=== PATIENT | female | born 1990 | race Caucasian/White ===

== ENCOUNTER → 2023-02-22 | Outpatient (CLI) | payer BC, SELFPAY ==
[2023-02-28 11:18] LABS: HPV APTIMA, High Risk Negative (Negative)
== END | disposition home or self-care (01) ==
LOC: LAB 11:53 → LABSPEC 11:53
PROVIDERS: Referring Provider Nurse Practitioner Women's Health; Visit Provider Nurse Practitioner Women's Health
DX: Z01.419 Encounter for gynecological examination (general) (routine) without abnormal findings (principal)
CPT/HCPCS: 87624; 88175; G0145

== ENCOUNTER → 2023-03-29 | Outpatient (CLI) | payer BC, SELFPAY ==
[2023-03-29 11:07] LABS: Follicle Stimulating Hormone 3.9 mIU/mL; Prolactin 8.9 ng/mL; T4 Free Direct 0.81 ng/dL (0.76-1.46); Thyroid Stim Hormone (TSH) 0.81 uIU/mL (0.358-3.74)
== END | disposition home or self-care (01) ==
LOC: LAB 10:09
PROVIDERS: Referring Provider Nurse Practitioner Women's Health; Visit Provider Nurse Practitioner Women's Health
DX: N91.2 Amenorrhea, unspecified (principal)
CPT/HCPCS: 36415; 83001; 84146; 84439; 84443

== ENCOUNTER → 2023-04-05 | Outpatient (CLI) | payer BC, SELFPAY ==
--- NOTE | 2023-04-05 12:22 | US_ITS ---
HISTORY: amenorrhea. TECHNIQUE: Transabdominal and transvaginal pelvic ultrasound was performed with agee scale and color Doppler evaluation. 88 images. COMPARISON: None. FINDINGS: UTERUS: 7.8 x 3.9 x 5.3 cm. Anteverted. ENDOMETRIAL THICKNESS: 3 mm. RIGHT OVARY: 2.1 x 4 x 2.5 cm for a volume of 11 cc. Multiple small follicles noted. No adnexal masses. LEFT OVARY: 1.5 x 4 x 3 cm for a volume of 9 cc. No adnexal masses. FREE FLUID: None. URINARY BLADDER: Distended at 815 cc. US/Pelvic (Non ) IMPRESSION: Unremarkable pelvic ultrasound. Electronically Signed: Heena Lilly MD at 12:14 EDT ,
[2023-04-05 13:57] LABS: Estradiol 37.1 pg/mL; Luteinizing Hormone 12.1 mIU/mL
[2023-04-05 13:57] LABS: Progesterone Level 0.72 ng/mL (See Comment)
[2023-04-11 14:10] LABS: Anti-Cardiolipin Ab, IgA, Qn < 9 APL U/mL (0-11); Anti-Cardiolipin Ab, IgG, Qn < 9 GPL U/mL (0-14); Anti-Cardiolipin Ab, IgM, Qn < 9 MPL U/mL (0-12); Anti-Mullerian Hormone,Serum 8.24 ng/mL (.); Beta-2-Glycoprotein I IgA <9 (0-25); Beta-2-Glycoprotein I IgG <9 (0-20); Beta-2-Glycoprotein I IgM <9 (0-32); Dilute Prothrombin Time (dPT) 37.1 sec (0.0-47.6); Dilute Russell Viper Venom 33.7 sec (0.0-47.0); Interpretation Comment: (.); PTT-LA 38.6 sec (0.0-43.5); Thrombin Time 19.4 sec (0.0-23.0)
== END | disposition home or self-care (01) ==
PROVIDERS: Referring Provider Nurse Practitioner Women's Health; Visit Provider Nurse Practitioner Women's Health
DX: N91.1 Secondary amenorrhea (principal); N96 Recurrent pregnancy loss; Z31.9 Encounter for procreative management, unspecified
CPT/HCPCS: 36415; 76830; 76856; 82670; 83001; 83002; 83516; 84144; 86146; 86147

== ENCOUNTER → 2023-06-12 | Outpatient (CLI) | payer BC, SELFPAY ==
[2023-06-12 15:44] LABS: Progesterone Level 8.81 ng/mL (See Comment)
[2023-06-12 15:54] LABS: hCG Titer Quant., Serum 118 mIU/mL (1-3)
== END | disposition home or self-care (01) ==
LOC: LAB 13:58
PROVIDERS: Referring Provider Nurse Practitioner Women's Health; Visit Provider Nurse Practitioner Women's Health
DX: N91.2 Amenorrhea, unspecified (principal)
CPT/HCPCS: 36415; 84144; 84702

== ENCOUNTER → 2023-06-14 | Outpatient (CLI) | payer BC, SELFPAY ==
[2023-06-14 11:23] LABS: hCG Titer Quant., Serum 55 mIU/mL (1-3)
== END | disposition home or self-care (01) ==
LOC: LAB 10:40
PROVIDERS: Referring Provider Nurse Practitioner Women's Health; Visit Provider Nurse Practitioner Women's Health
DX: N91.2 Amenorrhea, unspecified (principal)
CPT/HCPCS: 36415; 84702

== ENCOUNTER → 2023-06-23 | Outpatient (CLI) | payer BC, SELFPAY ==
[2023-06-23 13:14] LABS: hCG Titer Quant., Serum < 1 mIU/mL (1-3)
== END | disposition home or self-care (01) ==
LOC: LAB 11:37
PROVIDERS: Referring Provider Nurse Practitioner Women's Health; Visit Provider Nurse Practitioner Women's Health
DX: O20.0 Threatened abortion (principal); Z3A.00 Weeks of gestation of pregnancy not specified
CPT/HCPCS: 36415; 84702

== ENCOUNTER → 2023-07-25 | Outpatient (CLI) | payer BC, SELFPAY ==
[2023-07-25 17:07] LABS: hCG Titer Quant., Serum 558 mIU/mL (1-3)
== END | disposition home or self-care (01) ==
LOC: LAB 15:18
PROVIDERS: Referring Provider Nurse Practitioner Women's Health; Visit Provider Nurse Practitioner Women's Health
DX: N91.2 Amenorrhea, unspecified (principal)
CPT/HCPCS: 36415; 84702

== ENCOUNTER → 2023-07-27 | Outpatient (CLI) | payer BC, SELFPAY ==
[2023-07-27 11:08] LABS: hCG Titer Quant., Serum 1338 mIU/mL (1-3)
== END | disposition home or self-care (01) ==
PROVIDERS: Referring Provider Registered Nurse; Visit Provider Registered Nurse
DX: N91.2 Amenorrhea, unspecified (principal)
CPT/HCPCS: 36415; 84702

== ENCOUNTER → 2023-08-04 | Outpatient (CLI) | payer BC, SELFPAY ==
--- NOTE | 2023-08-04 11:26 | US_ITS ---
STUDY: FIRST TRIMESTER OBSTETRICAL ULTRASOUND REASON FOR EXAM: Female, 32 years old viability LMP: June 17, 2023. TECHNIQUE: Transvaginal TECHNICAL QUALITY: Adequate. PRIOR ULTRASOUND: Comparison is made with prior pelvic sonogram dated April 05, 2023. FINDINGS: There is visualization of a single gestational sac in a normal intrauterine position. The mean sac diameter (MSD) measures 15.1 mm, indicating an estimated gestational age (EGA) of 6 weeks, 2 days. The gestational sac shape is within normal limits. There is a visualized yolk sac. The yolk sac measures 3.2 mm. The placenta is non-visualized. There is no demonstrated embryo ( pole). The estimated gestation age (EGA) by LMP is 6 weeks, 6 days. The estimated date of delivery (KAELA) by LMP is March 23, 2024. The estimated gestation age (EGA) by US is 6 weeks, 2 days. The estimated date of delivery (KAELA) by US is March 27, 2024. The uterus measures 9.2 cm x 7.4 cm x 4.6 cm. Findings suggestive of a bicornuate uterus. There is no demonstrated uterine fibroid. The cervix is closed. The right ovary measures 3.8 cm x 4.4 cm x 2.3 cm. Dominant follicle in the right ovary measuring 9 mm x 10 mm x 10 mm. There is no visualized right adnexal mass or complex lesion. The left ovary measures 3 cm x 3.8 cm x 1.6 cm. There is no left ovarian cyst. There is no visualized left adnexal mass or complex lesion. There is no fluid in the cul de sac. US/Transvaginal w/Preg US IMPRESSION: Intrauterine gestational sac with a mean gestational age of 6 weeks and 2 days. No pole is seen at this time. Electronically Signed: Edin De Leon MD at 12:48 EDT ,
[2023-08-04 14:07] LABS: hCG Titer Quant., Serum 16765 mIU/mL (1-3)
== END | disposition home or self-care (01) ==
PROVIDERS: Referring Provider Registered Nurse; Visit Provider Registered Nurse
DX: Z87.59 Personal history of other complications of pregnancy, childbirth and the puerperium (principal)
CPT/HCPCS: 36415; 76817; 84702

== ENCOUNTER → 2023-08-07 | Outpatient (CLI) | payer BC, SELFPAY ==
[2023-08-07 08:24] LABS: hCG Titer Quant., Serum 26669 mIU/mL (1-3)
== END | disposition home or self-care (01) ==
PROVIDERS: Referring Provider Registered Nurse; Visit Provider Registered Nurse
DX: Z87.59 Personal history of other complications of pregnancy, childbirth and the puerperium (principal)
CPT/HCPCS: 36415; 84702

== ENCOUNTER → 2023-08-24 | Outpatient (CLI) | payer BC, SELFPAY ==
[2023-08-24 16:09] LABS: Absolute Lymphocyte Count 1.64 X10^3/uL (0.83-4.51); Absolute Neutrophil Count 6.2 X10^3/uL (2.0-7.7); Basophil# 0.03 X10^3/uL; Basophil% 0.3 % (0-1); Eosinophil# 0.04 X10^3/uL; Eosinophils% 0.5 % (0-5); Hematocrit 38.1 % (37-47); Hemoglobin 12.4 g/dL (12.0-15.0); Lymphocyte # 1.64 X10^3/ul (0.83-4.51); Lymphocyte % 19.1 % (19-41); Mean Corp Hgb Conc 32.5 g/dL (32-36); Mean Corpuscular Hgb 29.5 pg (27.0-32.0); Mean Corpuscular Volume 90.5 fL (81-99); Mean Platelet Vol. 10.7 fl (6.2-12.0); Monocyte# 0.64 X10^3/uL; Monocyte% 7.5 % (0-10); NRBC Flagged by Analyzer 0 % (0-5); Neutrophil % 72.1 % (47-70); Platelet Count 277 K/mm3 (150-450); RBC Distribution Width SD 42.7 fl (35.1-43.9); Red Blood Count 4.21 M/mm3 (4.2-5.4); White Blood Count 8.6 K/mm3 (4.4-11.0)
[2023-08-24 17:24] LABS: HIV - WCH Non-Reactive (Nonreactive); Hepatitis B Surface Antigen Non-Reactive (Nonreactive); Hepatitis C Antibody Non-Reactive (Nonreactive); Rubella IgG Reactive (Nonreactive); Syphilis Antibodies Non-reactive
[2023-08-29 00:06] LABS: Chlamydia By Nucleic Acid AMP Negative (Negative); Gonococcus By Nucleic Acid AMP Negative (Negative)
== END | disposition home or self-care (01) ==
PROVIDERS: PCP Family Medicine; Referring Provider Obstetrics & Gynecology; Visit Provider Obstetrics & Gynecology
DX: Z34.90 Encounter for supervision of normal pregnancy, unspecified, unspecified trimester (principal)
CPT/HCPCS: 36415; 85025; 86703; 86762; 86780; 86803; 86850; 86900; 86901; 87086; 87340; 87491; 87591

== ENCOUNTER 2023-12-10 10:26 | Emergency (ER) | payer BC, SELFPAY ==
[2023-12-10 10:27] VITALS: BP 103/68; PULSE 103; RESP 16; TEMP 36.6; O2SAT 98; BMI 21.5
--- NOTE | 2023-12-10 10:53 | EDS_ITS ---
HPI History of Present Illness Chief Complaint: Cold Sx Informant: patient Narrative Narrative: 33-year-old female at approximately 24 weeks ( P1) presenting hide concerns for dehydration and fever. Patient states on Monday she developed nasal congestion sore throat cough and chest tightness in addition to fever. She has been using Tylenol regularly for the fever. She states that she feels that she cannot get enough fluids in her and she is constantly thirsty. No vomiting or diarrhea. She spoke with her math interventionist this week and was sent to the emergency for evaluation. Patient denies any sputum production. No rashes. She notes her 4-year-old daughter stayed home from school on with fever and has had some ear discomfort. She states she is otherwise a very healthy individual. She states she has not taken any prescription medications. [facility] Medical History Urinary incontinence Home Medications turmeric 100 mg-paresh 150 mg-olive 50 mg-oreg 150 mg-capryl capsule cap PO 02/22/23 [History Last Taken Unknown] progesterone micronized 200 mg capsule (Prometrium) 200 mg vaginal QHS #30 caps 06/13/23 [Rx Last Taken Unknown] multivitamin no.47-iron fum 27 mg-folate no.1 1 mg-dha 300 mg capsule (PNV-DHA) cap PO 08/23/23 [History Last Taken Unknown] magnesium citrate 100 mg tablet 250 mg PO DAILY 09/22/23 [History Last Taken Unknown] oseltamivir 75 mg capsule (Tamiflu) 75 mg PO BID 5 days #10 caps 12/10/23 [Rx Last Taken Unknown] Allergy/AdvReac Type Severity Reaction Status Date / Time peanut Allergy Mild Upset Verified 12/10/23 10:27 Stomach Family History Grandmother Colon cancer Surgical History Hx of tonsillectomy S/P D&C (status post dilation and curettage) Social History adopted: No household members: spouse and children housing: house number of children: 1 current occupational status: employed current occupation: Physical therapist current occupational exposures/hazards: No pets and animals: No history of recent travel: No sexually active: Yes Smoking Status: Never smoker alcohol intake: never substance use type: does not use diet: gluten free and lactose free well-balanced diet: daily or most days caffeine: No eating out: 1-3 times/week during the past year weight has: remained stable what type of physical activity do you participate in: weight training frequency: 1-2 times per week duration: 15-30 minutes/day silvano/caodaism: Amish seatbelt use: always do you feel safe at home: Yes additional social history: - [employer]- Works in IT ROS ROS ED Constitutional Constitutional ED: Reports chills and fever(s); Denies weight loss Eyes Eyes: Denies change in vision or diplopia ENT ENT ED: Reports rhinorrhea, sore throat and other Details: Nasal congestion ; Denies ear pain Cardiovascular Cardiovascular: Denies chest pain, orthopnea, palpitations or racing heartbeat Respiratory/Chest Respiratory/Chest: Reports cough; Denies dyspnea or orthopnea Gastrointestinal Gastrointestinal: Denies abdominal pain, diarrhea, nausea or vomiting Genitourinary Genitourinary ED: Denies dysuria, hematuria or urinary frequency Musculoskeletal Musculoskeletal: Denies arthralgias or myalgias Integumentary Denies abscess or rash Neurologic Neurologic: Denies headache(s) or weakness Psychiatric Psychiatric: Denies anxiety, depression, suicidal ideation or suicidal thoughts Endocrine Endocrinology: Denies polydipsia, polyphagia or polyuria Allergic/Immunologic Allergic/Immunologic ED: Denies mouth swelling, tongue swelling or urticaria EXAM Physical Exam Const Vital Signs: 12/10/23 10:27 Temperature 97.9 F Temperature Source Oral Pulse Rate 103 H Respiratory Rate 16 Blood Pressure 103/68 Blood Pressure Mean 79 Pulse Ox 98 Oxygen Delivery Method Room Air Positive well nourished and well developed General Appearance ED: well developed HEENT Reports normocephalic, head/scalp atraumatic, TM's clear and moist mucous membranes HEENT Narrative: Nasal congestion. Tympanic Membrane ED: Yes TM's clear Eyes PERRL and EOMs intact bilaterally Neck no lymphadenopathy, supple and no JVD Resp normal respiratory effort and clear to auscultation bilaterally Cardio regular rate, regular rhythm and no murmurs GI normal to inspection, nondistended, normoactive bowel sounds and non-tender Palpation: soft Back/Spine no CVA tenderness and normal ROM Extremity normal to inspection General Extremety ED: Negative for edema General Extremity: Negative for edema Neuro oriented x3 and CN's II-XII intact bilaterally Sensorium / Orientation: alert Motor Exam: strength 5/5 throughout Psych mental status grossly normal Mood & Affect: Negative for depressed or tearful Skin no rashes or lesions noted and no wounds MDM MDM MDM Narrative Medical decision making narrative: Patient received a liter of IV fluids. Urinalysis was obtained. This demonstrated no protein or obvious infection. Ketones were only at 5. RSV influenza and COVID swabs were obtained. She is positive for influenza A. heart tones were obtained and normal. Patient and I spoke at length regarding risk benefits of Tamiflu. She is in the timeframe for it to start. She is going to have a discussion with her regarding taking it. We talked about continuing to encourage oral hydration fever control and monitoring breathing. Return if worsening or concerns History & Record Review Discussion w/independent historian: Patient and Family Lab Data Attestation: I reviewed the patient's lab results. Labs: Laboratory Results - last 24 hr 12/10/23 11:06 Urine Color Yellow Urine Clarity Clear Urine pH 7.0 Ur Specific [place] 1.005 Urine Protein Negative Urine Glucose (UA) Normal Urine Ketones 5 H Urine Occult Blood Negative Urine Nitrite Negative Urine Bilirubin Negative Urine Urobilinogen Normal Ur Leukocyte Esterase Negative Urine RBC 0 SEEN Urine WBC 0 SEEN Ur Squamous Epith Cells 0 SEEN Urine Bacteria 0 SEEN Urine Mucus 0 SEEN Discharge Plan Triage Chief Complaint: Cold Sx ED Provider: J[place] Dx/Rx/DC Orders Clinical Impression: , Influenza A Instructions: Influenza (Flu) and Prescriptions: New oseltamivir [Tamiflu] 75 mg capsule 75 mg PO BID 5 Days Qty: 10 0RF No Action ajluentw-fvyo-cinms-oreg-capry 100 mg-150 mg- 50 mg-150 mg capsule PO PNV-DHA 27 mg iron-1 mg -300 mg capsule PO magnesium citrate 100 mg tablet 250 mg PO DAILY progesterone micronized [Prometrium] 200 mg capsule 200 mg vaginal QHS Qty: 30 6RF Primary Care Provider: Xochitl Ferro Referrals: Xochitl Ferro [Primary Care Provider] - As Needed Disposition Disposition: Home, Self Care Discharge Date/Time: 12/10/23 12:49
[2023-12-10] MEDS: 0.9% Normal Saline (1000mL) 1,000 ML 1000 ML IV (11:04)
[2023-12-10 11:11] LABS: Bacteria 0 SEEN /hpf (None Seen); Mucous, Urine 0 SEEN /hpf (<or=2+); Red Blood Cells-Urine 0 SEEN /hpf (0-5); Squamous Epithelial Cells - UA 0 SEEN /hpf (5-10); White Blood Cells 0 SEEN /hpf (0-5)
[2023-12-10 11:14] LABS: Color, Urine Yellow (Yellow); Glucose, Dipstick Normal (Normal); Ketone-Dipstick 5 mg/dl (Negative); Leukocyte Esterase-Dipstick Negative /ul (Negative); Nitrite-Dipstick Negative (Negative); Occult Blood-Urine Negative /ul (Negative); Protein-Dipstick Negative (Negative); Specific Gravity, Urine 1.005 (1.002-1.030); Urine Bilirubin Dipstick Negative (Negative); Urine Clarity Clear (Clear); Urine Urobilinogen Normal (Normal)
--- OUTSIDE RECORDS SUMMARY | 2023-12-10 12:28 | XMS RPT_ITS | CCD ---
Author Name Unknown Address [address] [place] [address] Organization [facility] Care Team Providers Care Chief Fundraising Officer Name Role Phone Mike Anderson Primary Care Provider MIKE ANDERSON Primary Care Unavail able DAKSHA ESTES Admitting Unavailable LISA MALDONADO Attending Unava ilkaitlyn (GAS), [facility] Consulting Unavailable MIKE ANDERSON [facility] Unavail able DAKSHA ESTES Consulting Unavailable DAKSHA ESTES Admitting Unavailable VAHID KNOTT Attending Unavailab le LISA MALDONADO Referring Unava ilable MIKE ANDERSON [facility] Unavail able TEA PEREZ Admitting Unavailable TEA PEREZ Attending Unavailable Mike [place] DO [facility] Provide r Lisa Maldonado DO Unavailable MIKE ANDERSON [facility] Unavail able LISA MALDONADO Admitting Unava ilable MIKE ANDERSON [facility] Unavail able LISA MALDONADO Referring Unava ilable LISA MALDONADO Admitting Unava ilable LISA MALDONADO Admitting Unava ilable LISA MALDONADO Attending Unava ilable MIKE ANDERSON [facility] Unavail able LISA MALDONADO Referring Unava ilable LISA MALDONADO Admitting Unava ilable MADELYN ZHENG Attending Unavaila ble MIKE ANDERSON Primary Care Unavail able Lisa Maldonado Attending Unavailable UNKNOWN, Dr. SUMMERS Primary Care Unavailable JAYA ROCHA Attending MIKE Martinez Primary Care Unavail able JAYA ROCHA Attending MIKE Martinez Primary Care Unavail able FARRUKH PRIMARY CAREMD Primary Care Unavailable ZOILA VALADEZ Referring Unavailab ZOILA Duncan Attending Unavailab le Allergies Allergy Classification Reported Allergen(s) Allergy Type Date of Onset Reaction(s) Facility (8 sources) peanut allergenic extract; Translations: [PEANUT] Drug Allergy 12-22-2019 GI Intolerance [facility] Medications Current Medications Medication Drug Class(es) Dates Sig (Normalized) Sig (Original) amoxicillin 875 mg / clavulanate 125 mg oral tablet (2 sources) Penicillin-class Antibacterial Start: 01-02-2020 End: 01-09-2020 take 1 tablet by mouth twice daily amoxicillin-clav ulanate (AUGMENTIN) 875-125 mg per tablet Take 1 (one) tablet by mouth 2 (two) times a day for 7 days . 14 tablet 0 01/02/2020 01/09/2020 Active cholecalciferol 0.025 mg oral tablet (3 sources) Vitamin D take 2 tablets by mouth once daily cholecalciferol, vitamin D3, 1,000 unit tablet Take 2,000 Units by mouth daily . 0 Active docusate sodium 50 mg / sennosides, nursing home 8.6 mg oral tablet (4 sources) Start: 12-23-2019 End: 01-23-2020 take 1 tablet by mouth once daily senna-docusate (SENNA-S) 8.6-50 mg Take 1 (one) tablet by mouth daily . 30 tablet 0 12/24/2019 01/23/2020 Active ferrous sulfate 325 mg oral tablet (7 sources) Start: 12-23-2019 End: 01-23-2020 take 1 tablet by mouth once daily at breakfast ferrous sulfate 325 (65 FE) MG tablet Take 1 (one) tablet (325 mg total) by mouth daily with breakfast . 30 tablet 0 12/24/2019 Active vitamin with Ca-Iron-FA 27-1 mg Tab (3 sources) take 1 tablet by mouth once daily vitamin with Ca-Iron-FA 27-1 mg Tab Take 1 tablet by mouth daily . 0 Active Completed/Discontinued Medications Medication Drug Class(es) Dates Sig (Normalized) Sig (Original) acetaminophen 325 mg oral tablet (5 sources) Start: 01-06-2020 End: 01-07-2020 take 1 tablet by mouth every six hours as needed acetaminophen (TYLENOL) tablet 650 mg Problems Active Problems Problem Classification Problem Date Documented Da te Episodic/Chronic Nonmalignant breast conditions (5 sources) Unspecified lump in unspecified breast; Translations: [Solitary cyst of left breast] Onset: 09-01-2022 Episodic Other screening for suspected conditions (not mental disorders or infectious disease) (4 sources) Bacteria present; Translations: [Positive GBS test] Onset: 12-21-2019 12-21-2019 Unclassified (1 source) [place] [facility] Physician Contact Required; Translations: [[place] [facility] Physician Contact Required] Onset: 10-11-2022 Past or Other Problems Problem Classification Problem Date Documented Da te Episodic/Chronic Bacterial infection; unspecified site (1 source) Bacteria present; Translations: [Streptococcus, group B, as the cause of diseases classified elsewhere] Onset: 12-21-2019 12-21-2019 Episodic Hypertension complicating ; childbirth and the puerperium (14 sources) Hypertension AND/OR vomiting complicating childbirth AND/OR puerperium; Translations: [Pre-eclampsia] Onset: 12-21-2019 12-21-2019 Episodic Inflammatory diseases of female pelvic organs (4 sources) Endometritis; Translations: [Inflammatory disease of uterus, unspecified] Onset: 01-01-2020 01-02-2020 Episodic Other and delivery including normal (9 sources) No liquor observed vaginally ; Translations: [ state] Onset: 12-21-2019 12-21-2019 Episodic Residual codes; unclassified (5 sources) Gestation period, 39 weeks; Translations: [39 weeks gestation of ] Onset: 12-21-2019 12-21-2019 Episodic Unclassified (1 source) [place] [facility] Physician Contact Required; Translations: [[place] [facility] Physician Contact Required] Onset: 10-11-2022 Results Test Name Value Interpretation Reference Range Facil ity Vital Signs Date Time Vital Sign Value Performing Clinician Faci lity 01-06-2020 19:00-0500 Body Temperature 98.8 [degF] Generic [facility] 01-06-2020 19:00-0500 BP Diastolic 77 mm[Hg] Generic [facility] 01-06-2020 19:00-0500 BP Systolic 122 mm[Hg] Generic [facility] 01-06-2020 19:00-0500 Pulse (Heart Rate) 85 /min Generic [facility] 01-06-2020 19:00-0500 Pulse Oximetry 98 % Generic [facility] 01-06-2020 19:00-0500 Respiratory Rate 14 /min Generic [facility] 01-02-2020 08:06-0500 Respiratory Rate 14 /min Vernon Savage [facility] 01-02-2020 07:15-0500 Body Temperature 98.49 [degF] Vernon Savage [facility] 01-02-2020 07:15-0500 BP Diastolic 82 mm[Hg] Vernon Savage [facility] 01-02-2020 07:15-0500 BP Systolic 130 mm[Hg] [facility] 01-02-2020 07:15-0500 Pulse (Heart Rate) 78 /min Vernonwill Waldropveronica [facility] 01-02-2020 07:15-0500 Pulse Oximetry 98 % Vernon Savage [facility] 01-01-2020 16:35-0500 BMI (Body Mass Index) 22 kg/m2 Vernon Van [facility] 01-01-2020 16:35-0500 Body weight 67.59 kg [facility] 01-01-2020 16:35-0500 Height 175.3 cm [facility] 12-24-2019 08:06-0500 Body Temperature 98.01 [degF] Daksha Estes [facility] 12-24-2019 08:06-0500 BP Diastolic 84 mm[Hg] Daksha Estes [facility] 12-24-2019 08:06-0500 BP Systolic 135 mm[Hg] Daksha Estes [facility] 12-24-2019 08:06-0500 Pulse (Heart Rate) 71 /min Daksha Estes [facility] 12-24-2019 08:06-0500 Pulse Oximetry 99 % Daksha Estes [facility] 12-24-2019 08:06-0500 Respiratory Rate 16 /min Daksha Estes [facility] 12-21-2019 13:0500 BMI (Body Mass Index) 24.37 kg/m2 Daksha Estes [facility] 12-21-2019 13:0500 Body weight 74.84 kg Daksha Estes [facility] 12-21-2019 13:0500 Height 175.3 cm Daksha Estes [facility] Encounters Encounter Date Encounter Type Care Provider Facility Start: 11-09-2023 End: 11-09-2023 ambulatory [facility] Start: 10-26-2022 End: 10-26-2022 ambulatory [facility] Start: 10-11-2022 End: 10-11-2022 ambulatory [facility] Start: 09-01-2022 ambulatory Lisa Jones ility:[id number] Start: 01-11-2022 ambulatory Facility:[facility] Start: 07-30-2021 End: 07-30-2021 ambulatory LISA MALDONADO [facility] Start: 07-27-2021 Patient encounter status Justyn Ochoa RN [facility] Start: 07-27-2021 End: 07-27-2021 Transcribe Orders Justyn Ochoa RN [facility] Procedures Date Procedure Procedure Detail Performing Clinician Start: 01-06-2020 Complete blood count (hemogram) panel - Blood by Automated count Annabel Shupp Work Phone: Start: 01-06-2020 Complete blood count (hemogram) panel - Blood by Automated count Annabel Shupp Work Phone: Start: 01-02-2020 Complete blood count with white cell differential, automated Deana Cleary Work Phone: Start: 01-02-2020 Complete blood count with white cell differential, manual Deana Cleary Work Phone: Start: 01-01-2020 RAINBOW DRAW Vernon Savage Work Phone: Start: 01-01-2020 Urinalysis Vernon Savage Work Phone: Start: 01-01-2020 URINE APPIAH CONTAINER Vernon Waldropveronica Work Phone: Start: 01-01-2020 Us uterus 14 wk transabdl 11/27 gestat Vernon Waldropveronica Work Phone: Start: 01-01-2020 Choriogonadotropin [Units/volume] in Serum or Plasma Vernon Waldrop[employer]onica Work Phone: Start: 01-01-2020 Complete blood count with white cell differential, automated Vernon Waldropveronica Work Phone: Start: 01-01-2020 Complete blood count with white cell differential, manual Vernon Calvin [employer] Work Phone: Start: 01-01-2020 Comprehensive [employer] 1999 panel - Serum or Plasma Vernon Waldropveronica Work Phone: Start: 12-22-2019 Hemoglobin [Mass/volume] in Blood Daksha Estes Work Phone: Start: 12-21-2019 Blood group typing Daksha Estes Work Phone: Start: 12-21-2019 Blood type and Indirect antibody screen panel - Blood Bailey Aziza [employer] Work Phone: Start: 12-21-2019 Complete blood count (hemogram) panel - Blood by Automated count Bailey [employer] Work Phone: Start: 12-21-2019 Comprehensive [employer] 1999 panel - Serum or Plasma [employer] Aziza [employer] Work Phone: Start: 12-21-2019 Lactate dehydrogenase [Enzymatic activity/volume] in Serum or Plasma by Lactate to pyruvate reaction [facility] Work Phone: Start: 12-21-2019 Protein/Creatinine [Ratio] in Urine [facility] Work Phone: Start: 12-21-2019 Treponema pallidum IgG Ab [Presence] in Serum [employer] Work Phone: Start: 12-21-2019 Urate [Mass/volume] in Serum or Plasma Bailey Arreola Work Phone: Start: 06-20-2019 Hepatitis B surface antigen measurement Historical Provider Start: 06-20-2019 Human immunodeficiency virus test Historical Provider Start: 06-20-2019 Neisseria gonorrhoeae nucleic acid detection Historical Provider Start: 06-20-2019 Rapid plasma reagin test Historical Prov ider Start: 06-20-2019 Rubella IgG measurement Historical Provi adolfo Start: 03-03-2017 Microscopic observation [Identifier] in Cervix by Cyto stain Daksha Estes Plan of Treatment Date Care Activity Detail Author Start: 07-30-2021 End: 07-30-2021 Admission to same day surgery center 07/30/2021 Surgery Lisa Maldonado, DO [address] [place] [address] HYSTEROSCOPY WITH DILATION AND CURETTAGE WITH MYOSURE [facility] Periop Immunizations Immunization Date Immunization Notes Care Provider Fa [facility] 12-22-2019 diphtheria, tetanus toxoids and acellular pertussis vaccine, unspecified formulation Daksha Estes [facility] 12-22-2019 measles, mumps and r ubella virus vaccine Daksha Estes [facility] 12-22-2019 varicella zoster immune globulin And rew Maureen [facility] Payers Date Payer Category Payer Unknown [id number] 2020 Private Health Insurance AEALINA LU OPEN ACCESS MANAGED CHOICE [id number] 2020-Present [phone] [address] [place] [address] [id number] 2020 Private Health Insurance [id number] 2015 Unknown [facility] [employer] CE PLUS [id number] 2015-Present [id number] 2015 Unknown [id number] 2015 Unknown [facility] UMR [employer] CE PLUS [id number] 2015-Present [phone] [address] [address] [place] [address] [id number] 1989 Unknown [id number] 1989 Unknown [id number] 1989 Unknown [id number] 1989 Unknown [id number] 1989 Unknown [id number] 1989 Unknown [id number] 1989 Unknown [id number] 1989 Unknown [id number] 1989 Unknown [id number] .903 1989 Unknown [id number] 1989 Unknown [id number] Social History Date Type Detail Facility Start: 12-21-2019 End: 12-22-2019 Tobacco smoking status NHIS Never smoker [facility] Start: 12-22-2019 End: 01-01-2020 Alcohol intake Ex-drinker (finding) [facility] Start: 12-21-2019 End: 01-01-2020 History SDOH Alcohol Frequency 1 [facility] Start: 1990 Sex Assigned At Not on file [facility] Start: 12-21-2019 Tobacco use and exposure Smokeless t obacco non-user [facility] Evaluation note Note Date & Type Note Facility documented in this encounter [facility] Hospital Course * Vahid Knott MD - 12/24/2019 10:11 AM EST Vaginal Discharge Summary Patient is s/p Spontaneous Vaginal Delivery day 2. course complicatedby elevated blood pressures. Patient is breast feeding. contraception abstinence. Discharge to home in stable condition with plans to follow up with OB provider in 1 weeks. Disposition: Home Discharge condition: Stable Medications upon discharge: Medication List START taking these medications ferrous sulfate 325 (65 FE) MG tablet Take 1 (one) tablet (325 mg total) by mouth daily with breakfast . ibuprofen 800 MG tablet Commonly known as: ADVIL,MOTRIN Take 1 (one) tablet (800 mg total) by mouth every 6 (six) hours as needed for pain . senna-docusate 8.6-50 mg Commonly known as: SENNA-S Take 1 (one) tablet by mouth daily . STOP taking these medications sodium sulfate, magnesium sulfate, potassium sulfate solution Commonly known as: Suprep Bowel Prep Kit Where to Get Your Medications [id number] [facility] [address] [place] [phone] ferrous sulfate 325 (65 FE) MG tablet ibuprofen 800 MG tablet senna-docusate 8.6-50 mg documented in this encounter Discharge Instructions * Attachments The following attachments cannot be sent through Care Everywhere. * Preeclampsia: : General Info (Palauan) * (Palauan) documented in this encounter* Instructions* Beck Byrd DO - 01/02/2020 Endometritis: Care Instructions Your Care Instructions endometritis is an infection of the lining of the uterus after you give . It is treated with antibiotics. It is very important to treat this problem. If you don't, you can get a more serious infection. It could cause problems, such as scars on the pelvic organs. Or it could prevent you from having more children. Follow-up care is a khan part of your treatment and safety. Be sure to make and go to all appointments, and call your doctor if you are having problems. It's also a good idea to know your test resultsand keep a list of the medicines you take. How can you care for yourself at home? Take your antibiotics as directed. Do not stop taking them just because you feel better. You need to take the full course of antibiotics. Rest until you feel better. Take an rfks-zam-atemdap pain medicine, such as acetaminophen (Tylenol) or ibuprofen (Advil, Motrin). Read and follow all instructions on the label. Do not take two or more pain medicines at the same time unless the doctor told you to. Many pain medicines have acetaminophen, which is Tylenol. Too much acetaminophen (Tylenol) can be harmful. If you have belly pain, use a hot water bottle. Or you can use a heating pad set on low. Put a thincloth between the heating pad and your skin. Do not have sex or use tampons until your doctor says it's safe. Use pads instead of tampons. When should you call for help? Call 911 anytime you think you may need emergency care. For example, call if: You passed out (lost consciousness). Call your doctor now or seek immediate medical care if: You have severe vaginal bleeding. You are dizzy or lightheaded, or you feel like you may faint. You have a fever. You have new or worse pain in your belly or pelvis. Watch closely for changes in your health, and be sure to contact your doctor if: Your vaginal bleeding seems to be getting heavier. You have new or worse vaginal discharge. You feel sad, anxious, or hopeless for more than a few days. You do not get better as expected. Where can you learn more? Log into your personal health record on [email or web address] and enter E897 in the Education box to learn more about Endometritis: Care Instructions. Current as of: April 24, 2019 Content Version: 12.3 1534-7712 [employer]. Care instructions adapted under license by your healthcare professional. If you have questions about a medical condition or this instruction, always ask your healthcare professional. [employer] disclaims any warranty or liability for your use of this information. documented in this encounter History of Present Illness * Vahid Knott MD - 12/24/2019 10:10 AM EST Progress Note Assessment/Plan 29 y.o. at 39w4d s/p , PPD# 2: Positive GBS test Assessment & Plan Plan intrapartum PCN. Gestational hypertension, third trimester Assessment & Plan 29 y.o. at 39w3d presents with c/o leakage of fluid, found to have elevated BP -blood pressures mild range, asx -HELLP labs: ??? -cvx: FT/th/hi, cephalic by bedside ultrasound -ATSO Dr. Estes -NPO/IVF -CEFM/toco -Admit labs pending -GBS pos; plan intrapartum PCN -Plan fam/pit - if unable to place fam plan cervidil 39 weeks gestation of Assessment & Plan -established with Dr. Maldonado - records requested - per patient GBS positive -NST reactive on arrival, several variable decels w/ normal bedside DVP 5.91 cm Will discuss with attending. Vahid Knott MD Subjective: No new subjective & objective note has been filed under this hospital service since the last note was generated. Review of Systems The following system(s) were reviewed and negative. Pertinent positive and negative findings are noted in the HPI. [] Const [] Eyes [] ENT [] Resp [] CV [] GI [] [] Neuro [] Musc [] Skin [] Psych [] Endo [] Allergy [] Heme/Lymph Objective BP 135/84 Pulse 71 Temp 98 F (36.7 C) (Oral) Resp 16 Ht 5' 9 (1.753 m) Wt 74.8 kg (165 lb) SpO2 99% Unknown BMI 24.37 kg/m General: Alert, well appearing, in no apparent distress Lungs: Unlabored respirations Abdomen: Soft, appropriately tender, fundus firm below umbilicus Extremities: No redness or tenderness in the calves or thighs Labs: Results from last 7 days Lab Units 12/22/19 1605 12/21/19 1200 HGB g/dL 8.9* 12.0 PLT K/mcL -- 217 AST U/L -- 21 ALT U/L -- 18 LDH U/L -- 196 URIC ACID mg/dL -- 4.8 * Abimbola Kemp DO - 12/23/2019 9:56 AM EST Vaginal Delivery Progress Note Assessment/Plan: Status post Vaginal Delivery: Doing well Feeling constipated. Denies MATOS, change in visino or RUQ pain. Continue current care. Subjective: Day 1: Vaginal Delivery The patient feels well. The patient denies emotional concerns. Pain is well controlled with currentmedications. Urinary output is adequate. The patient is ambulating well. The patient is tolerating a normal diet. Patient reports flatus yes. The baby is well Baby is feeding via Information for the patient's : Vanessa, Baby Karla Joshi [[id number]] Feeding Type: Breast milk Objective: Vital signs in last 24 hours: Temp: [97.4 F (36.3 C)-98.7 F (37.1 C)] 98 F (36.7 C) Heart Rate: [62-115] 71 Resp: [16-18] 16 BP: (103-138)/(62-88) 112/74 General: alert, appears stated age and cooperative Bowel Sounds: active Lochia: appropriate Uterine Fundus: firm Perineum: intact DVT Evaluation: No evidence of DVT seen on physical exam. * Linda Reaves RN - 12/22/2019 1:12 PM EST Journeyman Sheet Metal Worker Dr. Vides called to come evaluate bleeding and clots. * Bailey Arreola DO - 12/22/2019 3:06 AM EST Labor Note Subjective Pt is a 29 y.o. , with IUP @ 39w4d with Estimated Date of Delivery: 1/29/20. Pt tolerating labor well and comfortable with epidural . Objective BP (!) 118/97 Pulse 69 Temp 97.6 F (36.4 C) (Oral) Resp 18 Ht 5' 9 (1.753 m) Wt 74.8 kg (165 lb) SpO2 100% BMI 24.37 kg/m FHT: 140 bpm, moderate variability. Accelerations present 15x15. Decelerations absent [place]: contractions ctx every 3 min OB Examiner - PW: Jaden Pitocin: 10 mu/min Epidural: declines GBS positive Membranes: ruptured spontaneously, clear fluid Assessment and Plan 29 y.o. at 39w4d 1. Preeclampsia without severe features 2. SROM - making cervical change, continue pitocin - BP currently stable, asx; continue to monitor for severe features requiring MgSO4 - declining epidural at this time; continue to make available if patient desires - continue routine intrapartum care documented in this encounter* Beck Byrd DO - 01/02/2020 7:54 AM EST Gynecology Progress Note Assessment/Plan: Endometritis Assessment & Plan Pt S/P on 12/22/19 reporting fevers at home for the past 3-4 days + abdominal pain and abnormal discharge. Noted to have an uncomplicated delivery; was complicated by GBS + and pre-eclampsia w/o SF - WBC 21.8 - 17.8 - TVUS w/ Heterogeneous thickened appearance of the endometrium with a 3.6 cm echogenic, vascular focus within the endometrial canal; cannot rule out retained products of conception. - Fundal tenderness on examination PLAN: - Tylenol PRN fevers - GC/CT pending - Ucx pending - S/p IV Zosyn - Cytotec 25 mg PO (pt declined vaginal dose) - Clinically improving, plan for discharge with PO Augmentin Pre-eclampsia, delivered Assessment & Plan Met criteria for Pre-eclampsia without SF on admission for labor, no current medications - BP 130/82 - Asymptomatic state Assessment & Plan S/P on 12/22/19 - Breast-feeding - Lochia decreasing appropriately - No current contraception; will discuss with Dr. Knott - Breast-pump to bedside Subjective: Patient reports feeling significant improvement today. She is currently NPO in the event that she would need to go for suction D&C. She is ambulating and voiding without difficulty. Denies fever,chills, chest pain, shortness of breath, vaginal bleeding/discharge or pain in the legs. Review of Systems - The following ROS was otherwise negative, except as noted in the HPI: constitutional, respiratory, cardiovascular, gastrointestinal, genitourinary Objective: BP 130/82 Pulse 78 Temp 98.5 F (36.9 C) (Oral) Resp 16 Ht 5' 9 (1.753 m) Wt 67.6 kg (149lb) SpO2 98% BMI 22.00 kg/m General: Alert, well appearing, no acute distress Heart: RRR, no m/g/r Lungs: CTABL, no w/r/r Abdomen: Soft, mild mid-lower abdominal tenderness to palpation, no rebound/guarding/peritoneal signs Pelvic: Deferred Extremities: No redness or tenderness Osteopathic: no TART changes Admission on 01/01/2020 Component Date Value Sodium 01/01/2020 139 Potassium 01/01/2020 3.8 Chloride 01/01/2020 106 Bicarbonate 01/01/2020 21 Anion Gap 01/01/2020 16 Glucose 01/01/2020 132* BUN 01/01/2020 9 Creatinine 01/01/2020 0.68 eGFR 01/01/2020 118 BUN/Creatinine Ratio 01/01/2020 13.2 Total Protein 01/01/2020 6.6 Albumin 01/01/2020 3.5 Calcium 01/01/2020 8.7 Alkaline Phosphatase 01/01/2020 130 AST 01/01/2020 15 ALT 01/01/2020 18 Total Bilirubin 01/01/2020 <0.2 hCG Quant 01/01/2020 541* Color, Urine 01/01/2020 Yellow Clarity, Urine 01/01/2020 Clear Specific [place] 01/01/2020 1.007 pH, Urine 01/01/2020 6.0 Protein, Urine 01/01/2020 30 * Glucose, Urine 01/01/2020 Negative Ketones, Urine 01/01/2020 Negative Bilirubin, Urine 01/01/2020 Negative Urobilinogen, Urine 01/01/2020 <2.0 Blood, Urine 01/01/2020 Small* Nitrite, Urine 01/01/2020 Negative Leukocyte Esterase, Urine 01/01/2020 Moderate* WBCs, Urine 01/01/2020 13* RBCs, Urine 01/01/2020 <1 Bacteria, Urine 01/01/2020 Rare* Squamous Epithelial 01/01/2020 1 Mucus, Urine 01/01/2020 Rare WBC 01/01/2020 21.83* RBC 01/01/2020 3.30* Hemoglobin 01/01/2020 9.3* Hematocrit 01/01/2020 30.7* MCV 01/01/2020 93.0 MCH 01/01/2020 28.2 MCHC 01/01/2020 30.3* Platelets 01/01/2020 398 RDW - CV 01/01/2020 15.4* MPV 01/01/2020 9.5 Neutrophils 01/01/2020 85.9 Lymphocytes 01/01/2020 6.5 Monocytes 01/01/2020 4.9 Eosinophils 01/01/2020 0.9 Basophils 01/01/2020 0.3 IG Percent 01/01/2020 1.50 Neutrophils Abs 01/01/2020 18.76* Lymphocytes Abs 01/01/2020 1.41 Monocytes Abs 01/01/2020 1.07* Eosinophils Abs 01/01/2020 0.20 Basophils Abs 01/01/2020 0.06 IG Absolute 01/01/2020 0.33* Nucleated RBC Abs 01/01/2020 0.00 WBC 01/02/2020 17.79* RBC 01/02/2020 2.91* Hemoglobin 01/02/2020 8.5* Hematocrit 01/02/2020 28.1* MCV 01/02/2020 96.6 MCH 01/02/2020 29.2 MCHC 01/02/2020 30.2* Platelets 01/02/2020 345 RDW - CV 01/02/2020 15.6* MPV 01/02/2020 9.9 Neutrophils 01/02/2020 78.5 Lymphocytes 01/02/2020 11.2 Monocytes 01/02/2020 6.9 Eosinophils 01/02/2020 1.7 Basophils 01/02/2020 0.4 IG Percent 01/02/2020 1.30 Neutrophils Abs 01/02/2020 13.96* Lymphocytes Abs 01/02/2020 1.99 Monocytes Abs 01/02/2020 1.22* Eosinophils Abs 01/02/2020 0.31 Basophils Abs 01/02/2020 0.08 IG Absolute 01/02/2020 0.23 Nucleated RBC 01/02/2020 0.1 Nucleated RBC Abs 01/02/2020 0.02* Will discuss with attending documented in this encounter Assessments Diagnosis 39 weeks gestation of Gestational hypertension, third trimester No leakage of amniotic fluid into vagina Positive GBS test Preeclampsia, third trimester Diagnosis Endometritis Unspecified inflammatory disease of uterus Pre-eclampsia, delivered Mild or unspecified pre-eclampsia, with delivery state Routine follow-up Advance Directives No Advanced Directives Records FoundDocuments on File Type Date Recorded Patient Investigator Expl anation Advance Directives and Livin g Will 12/21/2019 10:48 AM Latest Code Status on File Code Status Date Activated Date Inactivated Comments Full Code 12/22/2019 3:27 PM Full Code 12/21/2019 1:04 PM 12/22/2019 3:27 PM Documents on File Type Date Recorded Patient Investigator Expl anation Advance Directives and Livin g Will 01/01/2020 5:05 PM Latest Code Status on File Code Status Date Activated Date Inactivated Comments Full Code 01/01/2020 7:43 PM Full Code 12/22/2019 3:27 PM 01/01/2020 4:34 PM Documents on File Type Date Recorded Patient Investigator Expl anation Advance Directives and Livin g Will 01/06/2020 5:05 PM Latest Code Status on File Code Status Date Activated Date Inactivated Comments Full Code 01/01/2020 7:43 PM 01/06/2020 3:03 PM Documents on File Type Date Recorded Patient Investigator Expl anation Advance Directives and Livin g Will 01/31/2020 12:47 PM Summary Purpose Family History No Family History Records FoundNo Family History Records FoundNo Family History Records FoundNo Family History Records FoundNo Family History Records FoundNo Family History Records FoundNo Family History Records FoundNo Family History Records FoundNo Family History Records FoundNo Family History Records Found Additional Source Comments Reason for Visit (unrecogniz ed section and content) Status Reason Specialty Diagnoses / Procedures Referre d By Contact Referred To Contact Diagnoses MATERNITY Reason Comments Post-op Problem Bailey Arreola DO - 12/21/2019 11:16 AM Deana Morales DO - 01/01/2020 7:54 PM Anya Eason MD - 01/06/2020 3:03 PM EST H&P Notes (unrecognized sect ion and content) Obstetrics History and Physical Assessment/Plan: 29 y.o. at 39w3d presents with c/o leakage of fluid. Positive GBS test Assessment & Plan Plan intrapartum PCN. Gestational hypertension, third trimester Assessment & Plan 29 y.o. at 39w3d presents with c/o leakage of fluid, found to have elevated BP -blood pressures mild range, asx -HELLP labs: WNL other than elevated P:C 2.8, meeting criteria for preeclampsia without severe features -cvx: FT/th/hi, cephalic by bedside ultrasound -ATSO Dr. Estes -NPO/IVF -CEFM/toco -Admit labs pending -GBS pos; plan intrapartum PCN -Plan cervidil 39 weeks gestation of Assessment & Plan -established with Dr. Maldonado - records requested - per patient GBS positive -NST reactive on arrival, several variable decels w/ normal bedside DVP 5.91 cm CC: Chief Complaint Patient presents with Rupture of Membranes noticed abput 0700 clearish fluid, +fm some contractions no regular HPI: Madelyn Mendez is a 29 y.o. at 39w3d who presents with complaints of small amount of continued leakage of fluid at 0100 12/21. Reports intercourse several hours prior. Denies vaginal bleeding. Denies contractions. Reports movement. Denies headache, visual changes, epigastric/RUQ pain, or LE edema. Review of Systems: The following ROS was otherwise negative, except as noted in the HPI: constitutional, HEENT, respiratory, cardiovascular, gastrointestinal, genitourinary, skin, musculoskeletal, neurological, psych OBGYN Provider : Dr. Maldonado Obstetrical History: OB History Para Term AB Living 1 0 0 0 0 0 SAB TAB Ectopic Multiple Live Births 0 0 0 0 0 # Outcome Date GA Lbr Zan/2nd Weight Sex Delivery Anes PTL Lv 1 Current Past Medical History: History reviewed. No pertinent past medical history. Medications: Outpatient Medications as of 12/21/2019 Medication Sig sodium sulfate, magnesium sulfate, potassium sulfate (SUPREP BOWEL PREP KIT) solution Take by oral route. Allergies: Patient has no known allergies. Surgical History: History reviewed. No pertinent surgical history. Family History: No family history on file. Social History: Social History Substance and Sexual Activity Alcohol Use Not Currently Frequency: Never Social History Substance and Sexual Activity Drug Use Never Social History Tobacco Use Smoking Status Never Smoker Smokeless Tobacco Never Used Physical Exam: BP 124/89 Pulse 80 Temp 98 F (36.7 C) (Oral) Resp 16 SpO2 97% General: Alert, well appearing, no acute distress Head: Normocephalic, atraumatic Lungs: Non-labored respirations Abdomen: Gravid, soft, nontende Pelvic: External: External female genitalia without masses/lesions or tenderness Vagina: Success mucosa with rugaeu, without abnormal discharge or lesions Cervix: No masses or lesions visualized, no cervical motion tenderness; FT/th/- 4. Cephalic by bedside ultrasound. Rectovaginal: deferred Extremities: No redness or tenderness Skin: Well perfused, normal coloration and turgor, no lesions or rashes visualized Neuro: Alert, oriented, normal speech, no focal deficits, moves extremities appropriately Psych: Appropriate, normal affect, appears stated age Osteopathic: No TART changes FHT: 140 baseline, mod jerzy, +accels, several variable decels [place]: quiet Labs: Admission on 12/21/2019 Component Date Value WBC 12/21/2019 10.61 RBC 12/21/2019 4.19 Hemoglobin 12/21/2019 12.0 Hematocrit 12/21/2019 37.7 MCV 12/21/2019 90.0 MCH 12/21/2019 28.6 MCHC 12/21/2019 31.8 Platelets 12/21/2019 217 RDW - CV 12/21/2019 13.9 MPV 12/21/2019 11.8 Nucleated RBC 12/21/2019 0.0 Nucleated RBC Abs 12/21/2019 0.00 Sodium 12/21/2019 136 Potassium 12/21/2019 4.4 Chloride 12/21/2019 105 Bicarbonate 12/21/2019 20* Anion Gap 12/21/2019 15 Glucose 12/21/2019 98 BUN 12/21/2019 10 Creatinine 12/21/2019 0.49 eGFR 12/21/2019 131 BUN/Creatinine Ratio 12/21/2019 20.4* Total Protein 12/21/2019 6.0 Albumin 12/21/2019 3.0* Calcium 12/21/2019 8.5 Alkaline Phosphatase 12/21/2019 216* AST 12/21/2019 21 ALT 12/21/2019 18 Total Bilirubin 12/21/2019 0.3 LDH 12/21/2019 196 Uric Acid 12/21/2019 4.8 ABORh 12/21/2019 O Positive Specimen Expires 12/21/2019 12/24/2019 23:59 EST Creatinine, Ur 12/21/2019 71.2 Protein Creatinine Ratio 12/21/2019 2.8* Protein, Ur 12/21/2019 198.3 D/w Dr. Estes. Associated attestation - Maureen, Daskha El MD - 12/21/2019 3:02 PM EST Patient seen and examined. See resident note. Agree with history, physical, exam, and diagnosis of: pre e w/o severe features Labs reviewed Plan revirwed w pt and partner Remote from delivery and unripe cx discussed NST reactivedocumented in this encounter Obstetrics History and Physical Assessment/Plan: 29 y.o. Endometritis Assessment & Plan Pt S/P on 12/22/19 reporting fevers at home for the past 3-4 days + abdominal pain and abnormal discharge. Noted to have an uncomplicated delivery; was complicated by GBS + and pre-eclampsia w/o SF - Afebrile on arrival, VSS - Leukocytosis of 21.83 - TVUS w/ Heterogeneous thickened appearance of the endometrium with a 3.6 cm echogenic, vascular focus within the endometrial canal; cannot rule out retained products of conception. - Fundal tenderness on examination PLAN: - Will admit for IV abx; surgical intervention not indicated at this time; however if pt does not clinically improve will plan for surgical intervention with possible D&C. If clinically improving in AM; possible D/C to home - IV Zosyn - Tylenol PRN fevers - GC/CT pending - Ucx pending - AM CBC - Cytotec 25 mg PO (pt declined vaginal dose) - Will continue to monitor closely state Assessment & Plan S/P on 12/22/19 - Breast-feeding - Lochia decreasing appropriately - No current contraception; will discuss with Dr. Marger - Breast-pump to bedside Pre-eclampsia, delivered Assessment & Plan Pt met criteria for Pre-eclampsia without SF on admission for labor - Mild range BP noted today - Asymptomatic - Not currently on anti-hypertensives - If severe Bps noted; will repeat HELLP labs - Will monitor closely for s/s of severe pre-eclampsia CC: Chief Complaint Patient presents with Post-op Problem HPI: Madelyn Mendez is a 29 y.o. at S/P on 12/22/19 who presents with complaints of abnormal discharge, fevers at home, and abdominal pain. Patient reports having fevers for the past 3 to 4 days. She had a temperature of 100.9 this afternoon even while taking Motrin. She also reports abdominal pain and abnormal discharge that has been present for the past 2 days. She did have some heavy bleeding where she reports soaking through 1 pad every 3 hours today, however her vaginal bleeding has improved and been decreasing appropriately since delivery. She had an uncomplicated vaginal delivery. Her was complicated by preeclampsia without severe features she has not been on any antihypertensives and her blood pressures have been mild to normotensive at home. She denies any sick contacts, lightheadedness, chest pain, shortness of breath, lower extremity swelling or redness, breast redness. She is currently breast-feeding. No prior history of sexually transmitted infections. She was GBS positive in her and was treated adequately in labor. Review of Systems: The following ROS was otherwise negative, except as noted in the HPI: constitutional, HEENT, respiratory, cardiovascular, gastrointestinal, genitourinary, skin, musculoskeletal, neurological, psych OBGYN Provider : Dr. Knott Obstetrical History: OB History Para Term AB Living 1 1 1 0 0 1 SAB TAB Ectopic Multiple Live Births 0 0 0 0 1 # Outcome Date GA Lbr Zan/2nd Weight Sex Delivery Anes PTL Lv 1 Term 12/22/19 39w4d 12:14 / :44 3335 g (7 lb 5.6 oz) F Vag-Spont EPI N CHRISSY Name: VANESSABABY GIRL MADELYN Apgar1: 8 Apgar5: 9 Past Medical History: Past Medical History: Diagnosis Date Abnormal Pap smear of cervix Hypertension Medications: Outpatient Medications as of 01/01/2020 Medication Sig cholecalciferol, vitamin D3, 1,000 unit tablet Take 2,000 Units by mouth daily . ferrous sulfate 325 (65 FE) MG tablet Take 1 (one) tablet (325 mg total) by mouth daily with breakfast . vitamin with Ca-Iron-FA 27-1 mg Tab Take 1 tablet by mouth daily . senna-docusate (SENNA-S) 8.6-50 mg Take 1 (one) tablet by mouth daily . ibuprofen (ADVIL,MOTRIN) 800 MG tablet Take 1 (one) tablet (800 mg total) by mouth every 6 (six) hours as needed for pain . Allergies: Peanut Surgical History: Past Surgical History: Procedure Laterality Date TONSILECTOMY, ADENOIDECTOMY, BILATERAL MYRINGOTOMY AND TUBES Bilateral 1994 Family History: Family History Problem Relation Age of Onset Hypertension Mother Hyperlipidemia Mother Heart disease Paternal Grandfather Social History: Social History Substance and Sexual Activity Alcohol Use Not Currently Frequency: Never Social History Substance and Sexual Activity Drug Use Never Social History Tobacco Use Smoking Status Never Smoker Smokeless Tobacco Never Used Physical Exam: BP 137/87 Pulse 78 Temp 98.1 F (36.7 C) (Oral) Resp 14 Ht 5' 9 (1.753 m) Wt 67.6 kg (149 lb) SpO2 97% BMI 22.00 kg/m General: Alert, well appearing, no acute distress Head: Normocephalic, atraumatic Breast: Symmetric, no tenderness, lymphadenopathy, rashes, lesions, masses or nipple discharge Lungs: Unlabored respiratory effort Abdomen: Fundal tenderness; uterus firm below umbilicus. No suprapubic tenderness. Pelvic: Deferred Extremities: No redness or tenderness, no BLE swelling Skin: Well perfused, normal coloration and turgor, no lesions or rashes visualized Neuro: Alert, oriented, normal speech, no focal deficits, moves extremities appropriately Psych: Appropriate, normal affect, appears stated age Osteopathic: No TART changes Labs: Admission on 01/01/2020 Component Date Value Sodium 01/01/2020 139 Potassium 01/01/2020 3.8 Chloride 01/01/2020 106 Bicarbonate 01/01/2020 21 Anion Gap 01/01/2020 16 Glucose 01/01/2020 132* BUN 01/01/2020 9 Creatinine 01/01/2020 0.68 eGFR 01/01/2020 118 BUN/Creatinine Ratio 01/01/2020 13.2 Total Protein 01/01/2020 6.6 Albumin 01/01/2020 3.5 Calcium 01/01/2020 8.7 Alkaline Phosphatase 01/01/2020 130 AST 01/01/2020 15 ALT 01/01/2020 18 Total Bilirubin 01/01/2020 <0.2 hCG Quant 01/01/2020 541* Color, Urine 01/01/2020 Yellow Clarity, Urine 01/01/2020 Clear Specific [place] 01/01/2020 1.007 pH, Urine 01/01/2020 6.0 Protein, Urine 01/01/2020 30 * Glucose, Urine 01/01/2020 Negative Ketones, Urine 01/01/2020 Negative Bilirubin, Urine 01/01/2020 Negative Urobilinogen, Urine 01/01/2020 <2.0 Blood, Urine 01/01/2020 Small* Nitrite, Urine 01/01/2020 Negative Leukocyte Esterase, Urine 01/01/2020 Moderate* WBCs, Urine 01/01/2020 13* RBCs, Urine 01/01/2020 <1 Bacteria, Urine 01/01/2020 Rare* Squamous Epithelial 01/01/2020 1 Mucus, Urine 01/01/2020 Rare WBC 01/01/2020 21.83* RBC 01/01/2020 3.30* Hemoglobin 01/01/2020 9.3* Hematocrit 01/01/2020 30.7* MCV 01/01/2020 93.0 MCH 01/01/2020 28.2 MCHC 01/01/2020 30.3* Platelets 01/01/2020 398 RDW - CV 01/01/2020 15.4* MPV 01/01/2020 9.5 Neutrophils 01/01/2020 85.9 Lymphocytes 01/01/2020 6.5 Monocytes 01/01/2020 4.9 Eosinophils 01/01/2020 0.9 Basophils 01/01/2020 0.3 IG Percent 01/01/2020 1.50 Neutrophils Abs 01/01/2020 18.76* Lymphocytes Abs 01/01/2020 1.41 Monocytes Abs 01/01/2020 1.07* Eosinophils Abs 01/01/2020 0.20 Basophils Abs 01/01/2020 0.06 IG Absolute 01/01/2020 0.33* Nucleated RBC Abs 01/01/2020 0.00 D/w Dr. Estes Associated attestation - Maureen, Daksha El MD - 01/02/2020 6:37 AM EST Late entry for 8pm 01/01 Patient seen and examined in ER w Dr. Cleary. See resident note. Agree with history, physical, exam, and diagnosis of: endometritis IV Zosyn secondary WBC 21k Not toxic Home in am documented in this encounter [facility] [place] and Physical Patient Name: Madelyn Mendez : 1990 MR #: [id number] Admit Date: Physicians: Mike Anderson DO (Family); Lisa Maldonado Ma* (Referring) Perpetual Assessment: 29 y.o. female patient of Mike Anderson DO recently and s/p recent hospitalization with endometritis. Presents post-operatively from D&C. Post-D&C bleeding Hgb 8.5 01/04 S/p 12/22 complicated by bleeding and treated with Cytotec 1000 mg NV Admitted at [facility] [place] 01/01 - 01/02 for endometritis, initially treated with IV antibiotics then transitioned to PO Augmentin D&C recommended at outpatient follow up S/p D&C this morning. Noted to have significant bleeding postoperatively treated with Cytotec and IM medication IV iron x1 dose Will monitor bleeding, recheck hemoglobin at 1800 pre-eclampsia without severe features Normotensive during admission for endometritis Normotensive on admission to Short Stay Able to be safely discharged from Short Stay Unit if hemoglobin is > 7. If < 7, will need to transfer to [facility] [place] for transfusion Chief Complaint: S/p D&C, bleeding History of Present Illness: 29 y.o. female s/p 12/22/2019 complicated by endometritis Reports uncomplicated . Delivery notable for ~1000cc bleeding treated with Cytotec. Re-admitted 01/01-01/02 with endometritis. Initially treated with antibiotics. However, at hospital follow up with knotting machine operator, was recommended to be treated with D&C. S/p outpatient D&C this morning. Post-procedure, was noted to have significant bleeding. Reports that she was treated with Cytotec and IM medications. Currently reports feeling cold and a mild headache. Reports that bleeding has slowed. Past Medical History: Past Medical History: Diagnosis Date Abnormal Pap smear of cervix Hypertension Past Surgical Hisory: Past Surgical History: Procedure Laterality Date TONSILECTOMY, ADENOIDECTOMY, BILATERAL MYRINGOTOMY AND TUBES Bilateral 1994 Family History: Family History Problem Relation Age of Onset Hypertension Mother Hyperlipidemia Mother Heart disease Paternal Grandfather Social History: Social History Tobacco Use Smoking Status Never Smoker Smokeless Tobacco Never Used Social History Substance and Sexual Activity Alcohol Use Not Currently Frequency: Never Social History Substance and Sexual Activity Drug Use Never Allergy Information: I have reviewed the patient's allergies. Peanut Home Medications: Previous Medications Medication Sig acetaminophen (TYLENOL) 500 MG tablet Take 1,000 mg by mouth every 8 (eight) hours as needed for pain . amoxicillin-clavulanate (AUGMENTIN) 875-125 mg per tablet Take 1 (one) tablet by mouth 2 (two) times a day for 7 days . cholecalciferol, vitamin D3, 1,000 unit tablet Take 2,000 Units by mouth daily . ferrous sulfate 325 (65 FE) MG tablet Take 1 (one) tablet (325 mg total) by mouth daily with breakfast . ibuprofen (ADVIL,MOTRIN) 800 MG tablet Take 1 (one) tablet (800 mg total) by mouth every 6 (six) hours as needed for pain . vitamin with Ca-Iron-FA 27-1 mg Tab Take 1 tablet by mouth daily . senna-docusate (SENNA-S) 8.6-50 mg Take 1 (one) tablet by mouth daily . Home medications were reviewed. ROS: Review of Systems Constitutional: Positive for fatigue. Negative for chills and fever. HENT: Negative for congestion and trouble swallowing. Respiratory: Negative for cough and shortness of breath. Cardiovascular: Negative for chest pain and palpitations. Gastrointestinal: Negative for abdominal pain, nausea and vomiting. Genitourinary: Positive for vaginal bleeding. Negative for pelvic pain. Skin: Negative for rash and wound. Neurological: Positive for headaches. Negative for light-headedness. Hematological: Negative for adenopathy. Does not bruise/bleed easily. PHYSICAL EXAMINATION: Vital Signs: BP 118/76 (BP Location: Left arm, Patient Position: Lying) Pulse 79 Temp 97.6 F (36.4 C) (Oral) Resp 16 SpO2 98% Physical Exam Vitals signs reviewed. Constitutional: Appearance: Normal appearance. HENT: Head: Normocephalic and atraumatic. Mouth/Throat: Mouth: Mucous membranes are moist. Pharynx: Oropharynx is clear. Cardiovascular: Rate and Rhythm: Normal rate and regular rhythm. Pulses: Normal pulses. Heart sounds: No murmur. Pulmonary: Effort: Pulmonary effort is normal. Breath sounds: Normal breath sounds. No wheezing or rales. Abdominal: General: There is no distension. Palpations: Abdomen is soft. Tenderness: There is abdominal tenderness (mild, suprapubic). Musculoskeletal: General: No tenderness. Right lower leg: No edema. Left lower leg: No edema. Skin: General: Skin is warm and dry. Capillary Refill: Capillary refill takes less than 2 seconds. Coloration: Skin is pale. Findings: No rash. Neurological: General: No focal deficit present. Mental Status: She is alert and oriented to person, place, and time. Psychiatric: Mood and Affect: Mood normal. Behavior: Behavior normal. Laboratory and Additional Data Reviewed: Laboratory 01/06/20 3:44 PM Cardiology 01/06/20 3:44 PM Medications 01/06/20 3:44 PM Associated attestation - Tea Perez DO - 01/06/2020 5:34 PM EST I personally saw and examined the patient independently. I reviewed the patient's chart and agree with history, exam, medical decision making and the assessment/plan except where indicated in my documentation below. Assessment/Plan Post D&C Bleeding Agree with below. Spoke with Dr. Maldonado, had about 600 cc blood loss in the OR. S/p Cytotec Will check H/H at 1800 and if stable and vaginal bleeding has improved, will discharge home.documented in this encounter Oneyda Savage LSW - 12/23/2019 1:18 PM EST Consult Notes (unrecognized section and content) Associated Order(s): IP CONSULT TO CARE MANAGEMENT COMPLEX DISCHARGE Date: 12/23/2019 Time: 1:18 PM Patient Name: Madelyn Mendez Date of : 1990 Sex: Female Discharge Planning Living Arrangements: Spouse/significant other Support Systems: Parent, Family members, Spouse/significant other Type of Residence: Private residence Prior to Admission Home Care Services: No Current Home Equipment: None Anticipated HME: None Anticipated Home Care Needs: None Anticipated Discharge Plan Anticipated HME: None Anticipated Home Care Needs: None Reason For Consult: Per protocol Social Work will screen/assess all patients on Mother- unit. Situation/Background: This is a 29 yr old mother, with private [facility] insurance. care through [facility] Dr. Lisa Maldonado. No indications for tox screens. No social concerns noted in records. Action: Chart screened, no significant social robbi factors noted. SW met with MOB and she reported having a car seat and bed for infant. SW reviewed ABC's of safe sleep and provided VL (discussed insurance process). SW provided safe sleep, post- depression prevention, and community resource list. SW discussed with MOB following up with Dr. Maldonado for post- follow-up care. MOB denied other needs at this time. Recommendation: No intervention planned at this time. Please consult if needs arise. documented in this encounter Quick Note - Milana Child RN - 12/24/2019 1:20 PM ESTLactation Note - Zoila Matta RN - 12/24/2019 11:50 AM ESTUtilization Review - Elsi Chirinos RN - 12/24/2019 10:50 AM EST Miscellaneous Notes (unrecog nized section and content) Patient attended discharge class today. AVS and follow up appointment reviewed with patient. Patient verbalizes understanding. All questions answered. In to observe and assist as needed. Mom has latched well and deeply in cross cradle position at right breast when I enter. Mom uses good positioning and latch techniques. fed well with deep long jaw movements observed and occasional swallowing heard. Upon detaching nipple is round and mendel. Mom asked for assist with positioning and latch in football at 2nd breast. She has been using only cross cradle so far. Assisted mom with football at left breast and deep areolar latch obtained. Observe active and rhythmic suckle pattern. Infant fed til satiated and upon detaching observe nipple is round and mendel. Mom has been using hydrogel pads for nipple soreness but observe nipples intact and without redness or trauma. Reviewed management of engorgement as mom may encounter difficulty with latch d/t dense breast tissue. Mom has a manual pump as well as a personal electric pump for home use. Discussed/information provided for pumping for RTW. Mom and baby for DC home today. Rhonda resource information provided for any needs after DC. Other community resources/outpatient resources discussed as well. [facility] Utilization Review Notes L and D Template Admit Date: 12/21/2019 Delivery Type: Vaginal, Spontaneous Gender: GIRL weight: 7 lb 5.6 oz Gestational age: 39w4d Delivery date/time: date/time: 12/22/19 1144 Apgars: 8 9 Discharge Date: 12/24/2019 12/23/19 2015 Other OB Documentation Additional Problem Noted Pt asked for LC to view latch again. Baby latched deeply over the nipple shield. Good sucks. Baby detached and pt relatched w/o problems. Instructed pt and FOB on waking techniques, latching, and keeping baby awake for feeding. Pt had 2.5ml of EBM. Instructed pt on finger feeding. This LC finger fed 1ml and Pt fed the rest. Pt called with questions for LC. Answered. She said baby fed x 10 min at last feeding. She hand expressed about 3ml of colostrum because she wanted to. She plans to finger feed that to baby after the next feeding. 12/23/19 1233 Other OB Documentation Additional Problem Noted Pt requested LC view feeding. Baby in x-cradle hold on right breast using nipple shield w/good sucks. No c/o nipple pain. Observed x 5 min. 12/23/19 0902 Other OB Documentation Additional Problem Noted Pt said she just finished bf baby at the left breast. She said she was having problems latching on the right side. Assisted in x-cradle hold. Pt w/small, dense breasts and small nipples. Pt c/o pinching when baby latched. Re-latched several times. Used a 20mm nipple shield. Baby latched well over the shield but came off frequently. She fed for about 3 min. Called to assist with latch and . Mom attempting to latch when I enter. Mom states infant is not as interested in feeding this time. Assisted with techniques to awaken and latch infant. Infant becomes more interested in feeding but continues to have difficulty with latch and will not latch deeply or sustain latch. Suggest nipple shield to assist latch and mom is agreeable. Instructed in proper placement of 20 mm nipple shield. Shield seated deeply over right nipple. latched easily and deeply then over shield . Observe sustained latch with active and rhythmic suckle pattern. Visible swallowing observed. Infant latched and fed well at both breast. Upon detaching observe nipple pulled well into shield with a puddle of colostrum observed in shield. dressed and wrapped and to FOB to hold for a bit before placing in crib at bedside. Mom and FOB very tired and hope to sleep now that infant has fed well. Called to assist with latch and . Infant is eager to feed and roots for breast, extends tongue to reach for breast. latches shallow , however, and detaches after a few sucks, cheeks dimpling with suck. Mom has small , dense breasts with a short small nipple. Tried various positions in attempt to improve latch. Used sandwich hold as well to assist infant grasp of breast but infant still unable to latch well. With gloved digital exam observe infant tongue is up in back, she also tends thrust tongue in reverse motion pushing finger out. Laid back position works best to assist latch. Improved depth of latch obtained with sustaining a few more sucks before detaching. is very eager to feed and works at for 30 minutes. Post feeding infant still showing cues. Mom hand expresses at this point and large syrupy drops of colostrum expressed and drawn up into 1 ml oral syringe. 0.5 ml colostrum obtained and syringe fed to infant. Provided [employer] hand pump to this mom and instructed in use, switched flange size to 21 mm for better fit. Mom to use hand pump as needed in combination with hand expression. Plan to F/U and assist at next feeding. If infant latch is not improved with next feed will introduce nipple shield. The patient was seen and examined at bedside due to RN concern for passing large blood clots. Temp: [97.3 F (36.3 C)-98.8 F (37.1 C)] 97.4 F (36.3 C) Heart Rate: [58-115] 86 Resp: [16-18] 18 BP: (100-148)/(52-105) 121/75 General: No acute distress Respiratory: Unlabored respirations Abdomen: uterine fundus firm Pelvic: Saturated pad with numerous blood clots at bedside; active trickle of blood during fundal massage Assessment/Plan: 1. bleeding - 1000mcg Cytotec placed rectally, cont to monitor Lynn Vides DO PGY2 Obstetrics & Gynecology Dr. Vides called to bedside. Seen and evaluated bleeding and clots. 1000 mcg placed rectally. Fundus firm, one above the umbillicus and midline. Will continue to monitor bleeding closely. Vaginal Delivery Note Diagnosis: Active Problems: 39 weeks gestation of Gestational hypertension, third trimester No leakage of amniotic fluid into vagina Positive GBS test Preeclampsia, third trimester Vanessa, Baby Girl Madelyn [[id number]] Delivery Anesthesia Method: Epidural Operative Delivery Forceps attempted?: No Vacuum extractor attempted?: No Shoulder Dystocia Shoulder dystocia present: No [place] Presentation Presentation: Vertex Information date/time: 1/26/20 1144 Gender: Female Delivery type: Vaginal, Spontaneous Delivery location: OB Unit Initial disposition: Routine NB Care ?: No Details: Delivery Providers Delivering clinician: Daksha Estes MD Other personnel: Provider Role Covering Attending Lynn Vides DO Resident Track Liner Operator Linda Reaves, carrier washer Nurse Registered Nurse Chaya De Jesus, carrier washer Assist Nurse Practitioner Cord Vessels: 3 vessels Complications: None Delayed cord clamping?: Yes Cord clamped date/time: 12/22/2019 1145 Cord blood obtained?: Lab Cord segment obtained?: Yes Gases sent?: Yes Stem cell collection (by Provider)?: No Placenta Date/time: 12/22/2019 1146 Removal: Spontaneous Appearance: Intact Disposition: Refrigerator Apgars No data filed [place] Measurements Weight: 7 lb 5.6 oz (3335 g) Length: 19.5 Head Circumference: 13.78 Chest Circumference: 13.583 Abdominal Girth: 12.598 Lacerations Repair suture: Chromic Number of repair packets: 2 Sponge Initial Count: 10 Needle Initial Count: 3 Counted By: Patti SANCHEZ Verified By: Gisselle REAVES Sponge Final Count: 20 Needle Final Count: 5 Counted By: DR. ESTES Verified By: Gisselle REAVES RN Other Procedures Procedures: None over intact perineum with second degree lac Lac and left sulcus repaired w 3-0 vicryl EBL 417.6 8/9 Gases sent Cervidil placed without difficulty at 1644. Associated Problem(s): Positive GBS test Plan intrapartum PCN. Associated Problem(s): Gestational hypertension, third trimester 29 y.o. at 39w3d presents with c/o leakage of fluid, found to have elevated BP -blood pressures mild range, asx -HELLP labs: ??? -cvx: FT/th/hi, cephalic by bedside ultrasound -ATSO Dr. Estes -NPO/IVF -CEFM/toco -Admit labs pending -GBS pos; plan intrapartum PCN -Plan fam/pit - if unable to place fam plan cervidil Associated Problem(s): 39 weeks gestation of -established with Dr. Maldonado - records requested - per patient GBS positive -NST reactive on arrival, several variable decels w/ normal bedside DVP 5.91 cm documented in this encounter AVS reviewed with patient: Yes Including new/changed medications, signs/symptoms, & when to call 911: Yes Chart checked for prescriptions, home medications/security items: Yes All remaining immunizations given prior to d/c: Yes Does patient have transportation for discharge: Yes Was wheelchair requested to transport pt to main lobby: No Medications removed from med drawer & med drawer locked: Yes Discharge instructions given to patient, all questions answered. Pt verbalizes understanding.Peripheral IV removed.Patient has all belongings. Patient reports feeling significant improvement today. She is currently NPO in the event that she would need to go for suction D&C. She is ambulating and voiding without difficulty. Denies fever, chills, chest pain, shortness of breath, vaginal bleeding/discharge or pain in the legs. Feels better Afebrile overnight Uterus less tender Home w augmentin F/u office 24 hrs Associated Problem(s): state S/P on 12/22/19 - Breast-feeding - Lochia decreasing appropriately - No current contraception; will discuss with Dr. Knott - Breast-pump to bedside Associated Problem(s): Pre-eclampsia, delivered Met criteria for Pre-eclampsia without SF on admission for labor, no current medications - BP 130/82 - Asymptomatic Associated Problem(s): Endometritis Pt S/P on 12/22/19 reporting fevers at home for the past 3-4 days + abdominal pain and abnormal discharge. Noted to have an uncomplicated delivery; was complicated by GBS + and pre-eclampsia w/o SF - WBC 21.8 - 17.8 - TVUS w/ Heterogeneous thickened appearance of the endometrium with a 3.6 cm echogenic, vascular focus within the endometrial canal; cannot rule out retained products of conception. - Fundal tenderness on examination PLAN: - Tylenol PRN fevers - GC/CT pending - Ucx pending - S/p IV Zosyn - Cytotec 25 mg PO (pt declined vaginal dose) - Clinically improving, plan for discharge with PO Augmentin Problem: Actual or potential alteration in health Goal: Absence of healthcare acquired conditions Outcome: Partially Met Goal: Knowledge of Interdisciplinary Plan of Care Outcome: Partially Met Goal: Knowledge of Enviroment Outcome: Partially Met To ED to see breast feeding pt 10 days post . She said she has been and pumping at home for her baby. She has both a manual and double electric pump at home. Gave pt [employer] manual pump along with collection containers and supplies to wash her pump parts. She said if she is admitted to the hospital her plans to go home to get her supplies including her breast pump. She is to have staff call Team or S nurses station with needs. documented in this encounter Cytotec administered. IV dcd. Discharge instructions given to pt and significant other. No new bleeding noted. Pt denies any questions or concerns at this time. Transported pt per wheelchair to vehicle with her belongings. Patient states she hasn't bled anymore. Discussed with Dr. Maldonado and ordered to give another dose of Cytotec on discharge. Reviewed patient's hgb. Instructed patient to monitor bleeding and to follow up if worsens or becomes symptomatic. Reviewed plan of care and answered all questions. Patient verbalized understanding. Discussed with Dr. Maldonado about patient stating that her medication fell out . Patient also felt like there was an increased bleeding after medication was done and soaked a pad. Dr. Morales advised to give patient a dose of Methergine recheck Hgb and see how the bleeding trends. Patient concerned because the medication fell out earlier that was supposed to stop the bleeding. Patient then states she bled through 1 pad within the hour. Denies symptoms such as lightheadedness weakness. Will continue to monitor and repeat Hgb one more time prior to discharge Patient's hgb is stable and patient states pad has not had any blood. Patient's vs are stable. Patient ok for discharge at this time. Reviewed plan of care and answered all questions. Verbalized understanding. Pt used restroom, states bleeding has slowed down quite a bit. Pt did not need to change pad. [facility] States had a D&C today and has been experiencing heavy bleeding. Was going through 2 pads rather quickly. Denies any pain at this time. at bedside. Oriented to unit, room and call light. documented in this encounter Vernon Savage DO - 01/01/2020 5:54 PM Cole Vincent RN - 01/01/2020 4:38 PM EST ED Notes (unrecognized secti on and content) [facility] PCP - Mike Anderson DO CHIEF COMPLAINT: Vaginal discharge HPI This is a 29-year-old G1, P1 female that is status post vaginal delivery on 22 December. Patient presents here with vaginal bleeding initially was decreasing to about a pad every 3 hours. Patient states that she is now developed some discharge with this. Patient said no fevers or chills. Patient is abdominal cramping is lower abdomen otherwise denies any other areas of pain at this time. Patient denies any other symptoms at this time. She is not been taking thing for symptoms Review of Systems CONSTITUTIONAL: No unexpected weight change; HENT: No drooling; EYES: No discharge; RESPIRATORY: No stridor; ENDOCRINE: No polyphagia; ALLERGY/IMMUN: No hives; SKIN: No color changes; NEUROLOGIC: No new face asymmetry; HEMATOLOGIC: No new easy bruising; PSYCH: No self injury Physical Exam Vital Signs During ED Visit (as charted by nursing) Patient Vitals for the past 24 hrs: BP Temp Temp src Pulse Resp SpO2 Height Weight 01/01/20 1641 (!) 149/90 98.8 F (37.1 C) Oral (!) 103 16 97 % 01/01/20 1635 5' 9 67.6 kg (149 lb) Physical Exam Constitutional: She is oriented to person, place, and time. She appears well-developed and well-nourished. No distress. HENT: Head: Normocephalic. Mouth/Throat: Oropharynx is clear and moist. No oropharyngeal exudate. Eyes: Pupils are equal, round, and reactive to light. EOM are normal. Neck: Normal range of motion. Neck supple. No tracheal deviation present. Cardiovascular: Normal rate, regular rhythm, normal heart sounds and intact distal pulses. Exam reveals no gallop and no friction rub. No murmur heard. Pulmonary/Chest: Effort normal and breath sounds normal. No respiratory distress. She has no wheezes. She has no rales. Abdominal: Soft. Bowel sounds are normal. There is abdominal tenderness (mild) in the suprapubic area. There is no rebound and no guarding. Musculoskeletal: Normal range of motion. General: No tenderness or edema. Neurological: She is alert and oriented to person, place, and time. No cranial nerve deficit. Coordination normal. Skin: Skin is warm and dry. No rash noted. She is not diaphoretic. Psychiatric: She has a normal mood and affect. Nursing note and vitals reviewed. Past Medical History Past Medical History: Diagnosis Date Abnormal Pap smear of cervix Hypertension Past Surgical History Past Surgical History: Procedure Laterality Date TONSILECTOMY, ADENOIDECTOMY, BILATERAL MYRINGOTOMY AND TUBES Bilateral 1994 Family History Family History Problem Relation Age of Onset Hypertension Mother Hyperlipidemia Mother Heart disease Paternal Grandfather Social History Social History Socioeconomic History Marital status: Spouse name: Not on file Number of children: Not on file Years of education: Not on file Highest education level: Not on file Occupational History Not on file Social Needs Financial resource strain: Not on file Food insecurity Worry: Not on file Inability: Not on file Transportation needs Medical: Not on file Non-medical: Not on file Tobacco Use Smoking status: Never Smoker Smokeless tobacco: Never Used Substance and Sexual Activity Alcohol use: Not Currently Frequency: Never Drug use: Never Sexual activity: Yes Partners: Male Lifestyle Physical activity Days per week: Not on file Minutes per session: Not on file Stress: Not on file Relationships Social connections Talks on phone: Not on file Gets together: Not on file Attends congregational service: Not on file Active member of club or organization: Not on file Attends meetings of clubs or organizations: Not on file Relationship status: Not on file Other Topics Concern Not on file Social History Narrative Not on file Allergies Allergies Allergen Reactions Peanut GI Intolerance Medications Patient's Medications New Prescriptions No medications on file Previous Medications FERROUS SULFATE 325 (65 FE) MG TABLET Take 1 (one) tablet (325 mg total) by mouth daily with breakfast . IBUPROFEN (ADVIL,MOTRIN) 800 MG TABLET Take 1 (one) tablet (800 mg total) by mouth every 6 (six) hours as needed for pain . SENNA-DOCUSATE (SENNA-S) 8.6-50 MG Take 1 (one) tablet by mouth daily . Modified Medications No medications on file Discontinued Medications No medications on file ED Data Labs Reviewed COMPREHENSIVE METABOLIC PANEL - Abnormal; Notable for the following components: Result Value Glucose 132 (*) All other components within normal limits Narrative: The eGFR should be used for monitoring renal function only and not for medication dosing. HCG, BLOOD, QUANTITATIVE - Abnormal; Notable for the following components: hCG Quant 541 (*) All other components within normal limits Narrative: Males and non females: <5 mIU/mL Females during : 3-4 weeks 9-130 mIU/mL 4-5 weeks 75-2600 mIU/mL 5-6 weeks 850-20,800 mIU/mL 6-7 weeks 4000-100,200 mIU/mL 7-12 weeks 11,500-289,000 mIU/mL 12-16 weeks 18,300-137,000 mIU/mL 16-29 weeks 1,400-53,000 mIU/mL 29-41 weeks 940-60,000 mIU/mL URINALYSIS - Abnormal; Notable for the following components: Protein, Urine 30 (*) Blood, Urine Small (*) Leukocyte Esterase, Urine Moderate (*) WBCs, Urine 13 (*) Bacteria, Urine Rare (*) All other components within normal limits Narrative: Microscopic examination is performed on all urinalysis samples and only positive findings are reported. The test for blood on the chemical analytic portion of urinalysis may also be positive due to hemoglobinuria and myoglobinuria and if red blood cells are present they are quantified by microscopic examination. CBC WITH AUTO DIFFERENTIAL - Abnormal; Notable for the following components: WBC 21.83 (*) RBC 3.30 (*) Hemoglobin 9.3 (*) Hematocrit 30.7 (*) MCHC 30.3 (*) RDW - CV 15.4 (*) Neutrophils Abs 18.76 (*) Monocytes Abs 1.07 (*) IG Absolute 0.33 (*) All other components within normal limits WET PREPARATION CBC AND DIFFERENTIAL Narrative: The following orders were created for panel order CBC and Differential. Procedure Abnormality Status --------- ------ CBC Auto Differential[[id number]] Abnormal Final result Please view results for these tests on the individual orders. Radiographic Imaging (if any) During ED Visit US OB 1st Trimester Transabdominal Only with Color Flow Single Fetus Final Result Heterogeneous thickened appearance of the endometrium with a 3.6 cm echogenic, vascular focus within the endometrial canal consistent with retained products of conception. Workstation ID: [id number] Medications Ordered/Given During ED Visit Medications gentamicin (GARAMYCIN) 5 mg/kg = 340 mg in sodium chloride 0.9 % (NS) 108.5 mL IVPB (has no administration in time range) sodium chloride 0.9% (NS) bolus 1,000 mL (1,000 mL Intravenous New Bag 01/01/201801) clindamycin (CLEOCIN) IVPB 900 mg (premix) (0 mg Intravenous Stopped 01/01/201903) Procedures Last encounter in this department Visit date not found Nursing notes and vitals were reviewed MEDICAL DECISION MAKING Is a 29-year-old female who presents here with vaginal discharge and bleeding. Patient is status post a spontaneous vaginal delivery on the of last month. Patient underwent ultrasound which shows a heterogenous thickened appearance of the endometrium with 3.6 cm echogenic vascular focus within the endometrium canal consistent with retained products of conception. Patient blood work looks okay except for a leukocytosis of 21,000. Patient's urine shows mild mild signs of infection but is likely from the endometritis. I did contact OB and they have elected met the patient for further valuation. I did start clindamycin and gentamicin here. Time of check out on this patient : 7:40 PM CLINICAL IMPRESSION Endometritis The patient has been informed that they may have pre-hypertension or hypertension based on a blood pressure reading in the Emergency Department. I recommend that the patient call the primary care provider listed on their discharge instructions or a physician of their choice in the coming week to arrange follow-up for further evaluation of possible pre-hypertension or hypertension. Disposition admitted to the hospital (Please note that portions of this note may have been completed with a voice recognition software ([id number]).) Vernon Savage DO 01/01/201939 Patient 10 days post vaginal delivery, reports fever and vaginal discharge. documented in this encounter INFORMATION SOURCE (unrecogn ized section and content) DATE CREATED AUTHOR AUTHOR'S ORGANIZ ATION 04/24/2021 [facility] DATE CREATED AUTHOR AUTHOR'S ORGANIZ ATION 07/28/2021 [facility] DATE CREATED AUTHOR AUTHOR'S ORGANIZ ATION 07/31/2021 [facility] DATE CREATED AUTHOR AUTHOR'S ORGANIZ ATION 05/26/2022 [facility] DATE CREATED AUTHOR AUTHOR'S OR[facility]IZ ATION [facility]20[facility] DATE CREATED AUTHOR AUTHOR'S ORGANIZ ATION 09/03/2022 [facility] DATE CREATED AUTHOR AUTHOR'S ORGANIZ ATION 09/22/2022 [facility] DATE CREATED AUTHOR AUTHOR'S ORGANIZ ATION 10/27/2022 [facility] DATE CREATED AUTHOR AUTHOR'S ORGANIZ ATION 11/11/2023 [facility] Care Teams (unrecognized sec tion and content) FOR RECORDS PERTAINING TO PATIENTS WHO ARE OR HAVE BEEN ENROLLED IN A CHEMICAL DEPENDENCY/SUBSTANCEABUSE PROGRAM, SOME INFORMATION MAY BE OMITTED. This clinical summary was aggregated from multiple sources. Caution should be exercised in using it in the provision of clinical care. This summary normalizes information from multiple sources, and as a consequence, information in this document may materially change the coding, format and clinical context of patient data. In addition, data may be omitted in some cases. CLINICAL DECISIONS SHOULD BE BASED ON THE PRIMARY CLINICAL RECORDS. [facility] [employer] provides no warranty or guarantee of the accuracy or completeness of information in this document.
== END 2023-12-10 12:49 | disposition home or self-care (01) ==
PROVIDERS: Emergency Provider Emergency Medicine; PCP Family Medicine; Visit Provider Emergency Medicine
DX: O99.512 Diseases of the respiratory system complicating pregnancy, second trimester (principal); Z3A.24 24 weeks gestation of pregnancy; J10.1 Influenza due to other identified influenza virus with other respiratory manifestations
CPT/HCPCS: 81001; 87631; 99283; J7030

== ENCOUNTER → 2024-01-11 | Outpatient (CLI) | payer BC, SELFPAY ==
--- NOTE | 2024-01-11 07:45 | US_ITS ---
STUDY: SECOND AND THIRD TRIMESTER OBSTETRICAL ULTRASOUND - LIMITED REASON FOR EXAM: Female, 33 years old placenta location/growth LMP: June 24, 2023. PRIOR ULTRASOUND: None. TECHNIQUE: Transabdominal and Transvaginal TECHNICAL QUALITY: Adequate. FINDINGS: There is a single intrauterine fetus. The fetus is in a breech presentation. There is demonstrated cardiac activity with a heart rate of 148 bpm. There is a normal amniotic fluid volume. The largest amniotic fluid pocket measures 4.7 cm. The amniotic fluid index (JOSEYLN) is 15.4 cm. The placenta is posterior and low lying but not previa in location. The tip of the placenta is at 1.1 cm proximal to the internal os. There are Grade 0 placental changes. The cervix measures 4.1 cm in length. BIOMETRY: BPD: 6.75 cm: 27 weeks, 1 days HC: 25.73 cm: 28 weeks, 0 days AC: 24.34 cm: 28 weeks, 4 days FL: 5.4 cm: 28 weeks, 4 days Age by LMP: 28 weeks, 5 days. KAELA by LMP: March 30, 2024. age by current US: 28 weeks, 0 days. KAELA by current US: April 04, 2024. Estimated weight: 1232 grams, +/- 185 grams, 28.8 percentile. IMPRESSION: Single live intrauterine gestation with mean gestational age of 28 weeks. The placenta is low-lying. The tip of the placenta is at 1.1 cm proximal to the internal os. Electronically Signed: Edin De Leon MD at 13:29 EST , STUDY: FIRST TRIMESTER OBSTETRICAL ULTRASOUND REASON FOR EXAM: Female, 33 years old placenta location/. LMP: June 24, 2023 TECHNIQUE: Transvaginal TECHNICAL QUALITY: Adequate. PRIOR ULTRASOUND: None. FINDINGS: The cervical length measures 4.1 cm. There is evidence of a posterior low-lying placenta with the tip of the placenta at 1.1 cm proximal to the internal os. US/OB Limited With Biometrics IMPRESSION: The cervical length measures 4.1 cm. Electronically Signed: Edin De Leon MD at 13:30 EST ,
--- OUTSIDE RECORDS SUMMARY | 2024-01-11 07:48 | XMS RPT_ITS | CCD ---
Author Name Unknown Address [address] [place] [address] Organization [facility] Care Team Providers Care Wireless Technician Name Role Phone Mike Anderson Primary Care Provider MIKE ANDERSON Primary Care Unavail able DAKSHA ESTES Admitting Unavailable LISA MALDONADO Attending Nikoleva ilkaitlyn (GAS), [facility] Consulting Unavailable MIKE ANDERSON [facility] Unavail able DAKSHA ESTES Consulting Unavailable DAKSHA ESTES Admitting Unavailable VAHID KNOTT Attending Unavailab le LISA MALDONADO Referring Unava ilable MIKE ANDERSON [facility] Unavail able TEA PEREZ Admitting Unavailable TEA PEREZ Attending Unavailable Mike Anderson DO [facility] Provide r Lisa Maldonado DO Unavailable MIKE ANDERSON [facility] Unavail able LISA MALDONADO Admitting Unava ilable MIKE ANDERSON [facility] Unavail able LISA MALDONADO Referring Unava ilable LISA MALDONADO Admitting Unava ilable LISA MALDONADO Admitting Unava ilable LISA MALDONADO Attending Unava ilable MIKE ANDERSON [facility] Unavail able LISA MALDONADO Referring Unava ilable LISA MALDONADO Admitting Unava ilable MADELYN ZHENG Attending Unavaila ble MIKE ANDERSON Primary Care Unavail able Lisa Maldonado Attending Unavailable MARCELLO, Dr. SUMMERS Primary Care Unavailable JAYA ROCHA Attending MIKE Martinez Primary Care Unavail able JAYA ROCHA Attending MIKE Martinez Primary Care Unavail able FARRUKH PRIMARY CAREMD Primary Care Unavailable ZOILA VALADEZ Referring Unavailab ZOILA Duncan Attending Unavailab le Allergies Allergy Classification Reported Allergen(s) Allergy Type Date of Onset Reaction(s) Facility (8 sources) peanut allergenic extract; Translations: [PEANUT] Drug Allergy 12-22-2019 GI Intolerance [facility] Medications Current Medications Medication Drug Class(es) Dates [...] Active docusate sodium 50 mg / sennosides, [facility] 8.6 mg oral tablet (4 sources) Start: [...] 01-06-2020 19:00-0500 Body Temperature 98.8 [degF] Generic [facility] 01-06-2020 19:00-0500 BP Diastolic 77 mm[Hg] Generic [facility] 01-06-2020 19:00-0500 BP Systolic 122 mm[Hg] Generic [facility] 01-06-2020 19:00-0500 Pulse (Heart Rate) 85 /min Generic [facility] 01-06-2020 19:00-0500 Pulse Oximetry 98 % Generic [facility] 01-06-2020 19:00-0500 Respiratory Rate 14 /min Generic [facility] 01-02-2020 08:06-0500 Respiratory Rate 14 /min Vernon Savage [facility] 01-02-2020 07:15-0500 Body Temperature 98.49 [degF] Vernondavid Savage [facility] 01-02-2020 07:15-0500 BP Diastolic 82 mm[Hg] Vernon Savage [facility] 01-02-2020 07:15-0500 BP Systolic 130 mm[Hg] [facility]-02-2020 07:15-0500 Pulse (Heart Rate) 78 /min Vernon Waldropveronica [facility] 01-02-2020 07:15-0500 Pulse Oximetry 98 % Vernon Savage [facility] 01-01-2020 16:35-0500 BMI (Body Mass Index) 22 kg/m2 Vernon Van [facility] 01-01-2020 16:35-0500 Body weight 67.59 kg [facility] 01-01-2020 16:35-0500 Height 175.3 cm [facility] 12-24-2019 08:06-0500 Body Temperature 98.01 [degF] Daksha Estes [facility] 12-24-2019 08:06-0500 BP Diastolic 84 mm[Hg] Daksha Estes [facility] 12-24-2019 08:06-0500 BP Systolic 135 mm[Hg] Daksha Estes [facility] 12-24-2019 08:06-0500 Pulse (Heart Rate) 71 /min Daksha Estes [facility] 12-24-2019 08:06-0500 Pulse Oximetry 99 % Daksha Estes [facility] 12-24-2019 08:06-0500 Respiratory Rate 16 /min Daksha Estes [facility] 12-21-2019 13:050 BMI (Body Mass Index) 24.37 kg/m2 Daksha Estes [facility] 12-21-2019 13:050 Body weight 74.84 kg Daksha Estes [facility] 12-21-2019 13:050 Height 175.3 cm Daksha Estes [facility] Encounters Encounter Date Encounter Type Care Provider Facility Start: 11-09-2023 End: 11-09-2023 ambulatory [facility] Start: 10-26-2022 End: 10-26-2022 ambulatory [facility] Start: 10-11-2022 End: 10-11-2022 ambulatory [facility] Start: 09-01-2022 ambulatory Lisa Jones ility:[id number] Start: 01-11-2022 ambulatory Facility:[facility] Start: 07-30-2021 End: 07-30-2021 ambulatory LISA MALDONADO [facility] Start: 07-27-2021 Patient encounter status Justyn Ochoa RN [facility] Start: 07-27-2021 End: 07-27-2021 Transcribe Orders Justyn Ochoa RN [facility] Clinical Contact Center Procedures Date Procedure Procedure [...] Phone: Start: 01-01-2020 URINE APPIAH CONTAINER Vernon Waldropadolfojoseph Work Phone: Start: 01-01-2020 Us uterus 14 wk transabdl 11/27 gestat Vernon Waldropveronica Work Phone: Start: 01-01-2020 Choriogonadotropin [Units/volume] in Serum or Plasma Vernon Waldropveronica Work Phone: Start: 01-01-2020 Complete blood count with white cell differential, automated Vernon Waldropveronica Work Phone: Start: 01-01-2020 Complete blood count with white cell differential, manual Vernon Waldropadolfojoseph Work Phone: Start: 01-01-2020 Comprehensive metabolic 1999 panel - Serum or Plasma Vernon Waldropadolfojoseph Work Phone: Start: 12-22-2019 Hemoglobin [Mass/volume] in Blood Daksha Estes Work Phone: Start: 12-21-2019 Blood group typing Daksha Estes Work Phone: Start: 12-21-2019 Blood type and Indirect antibody screen panel - Blood re[employer]play[employer]it [employer] Work Phone: Start: 12-21-2019 Complete blood count (hemogram) panel - Blood by Automated count Bailey [employer] Work Phone: Start: 12-21-2019 Comprehensive metabolic 2000 panel - Serum or Plasma Ar[employer] Work Phone: Start: 12-21-2019 Lactate dehydrogenase [Enzymatic activity/volume] in Serum or Plasma by Lactate to pyruvate reaction [employer] Work Phone: Start: 12-21-2019 Protein/Creatinine [Ratio] in Urine [employer] Work Phone: Start: 12-21-2019 Treponema pallidum IgG Ab [Presence] in Serum Nob[employer]ma[employer] Work Phone: Start: 12-21-2019 Urate [Mass/volume] in [...] surgery center 07/30/2021 Surgery Lisa Maldonado, DO [address] [place] [address] HYSTEROSCOPY WITH DILATION AND CURETTAGE WITH MYOSURE [facility] Periop Immunizations Immunization Date Immunization Notes Care Provider [facility] 12-22-2019 diphtheria, tetanus toxoids and acellular pertussis vaccine, unspecified formulation Daksha Estes [facility] 12-22-2019 measles, mumps and r ubella virus vaccine Daksha Estes [facility] 12-22-2019 varicella zoster immune globulin And rew Maureen [facility] Payers Date Payer Category Payer Unknown [id number] 2020 Private Health Insurance [employer] OPEN ACCESS MANAGED CHOICE [id number] 2020-Present [phone] [address] [place] [address] [id number] 2020 Private Health Insurance [id number] 2015 Unknown [facility] U[facility] [employer] CE PLUS [id number] 2015-Present [id number] 2015 Unknown [id number] 2015 Unknown [facility] UMR [employer] PLUS [id number] 2015-Present [phone] [address] [address] [place] [address] [id number] 1989 Unknown [id number] 1989 Unknown [id number] 1989 Unknown [id number] 1989 Unknown [id number] [id number] [id number] 1989 Unknown [id number] .900 1989 Unknown [id number] .903 1989 Unknown [id number] [id number] .903 1989 Unknown [id number] .1069 1989 Unknown [id number] [id number] .903 1989 Unknown [id number] .903 1989 Unknown [id number] Social History Date Type Detail Facility Start: 12-21-2019 End: 12-22-2019 Tobacco smoking status NHIS Never smoker [facility] Start: 12-22-2019 End: 01-01-2020 Alcohol intake Ex-drinker (finding) [facility] Start: 12-21-2019 End: 01-01-2020 History SDOH Alcohol Frequency 1 [facility] Start: 1990 Sex Assigned At Not on file [facility] Start: 12-21-2019 Tobacco use and exposure Smokeless t obacco non-user [facility] Evaluation note Note Date & Type Note Facility documented in this encounter [facility] Hospital Course * Vahid Knott MD - [...] Your Medications These medications were sent to [id number] - [address] [facility] [address] [place] [id number] ferrous sulfate 325 (65 FE) MG tablet ibuprofen 800 MG tablet senna-docusate 8.6-50 mg documented in this encounter Discharge Instructions * Attachments The following attachments cannot be sent through Care Everywhere. * Preeclampsia: : General Info (Costa Rican) * ([place]ican) documented in this encounter* Instructions* Beck Byrd [...] Rest until you feel better. Take an pynx-ehd-[id number] pain medicine, such as acetaminophen (Tylenol) or [...] Log into your personal health record on [email or web address] and enter E897 in the Education box to learn more about Endometritis: Care Instructions. Current as of: April 24, 2019 Content Version: 12.3 7983-9620 [employer]. Care instructions adapted under license by your healthcare professional. If you have questions about a medical condition or this instruction, always ask your healthcare professional. [employer] disclaims any warranty or liability for your [...] Information for the patient's : Vanessa, Baby Girl Madelyn [[id number]] Feeding Type: Breast milk Objective: Vital signs [...] Reaves RN - 12/22/2019 1:12 PM EST Permanent [facility] Dr. Vides called to come evaluate bleeding and clots. * Bailey Arreola DO - 12/22/2019 3:06 AM EST Labor Note Subjective Pt is a 29 y.o. , with IUP @ 39w4d with Estimated Date of Delivery: 12/25/19. Pt tolerating labor well and comfortable with epidural . Objective BP (!) 118/97 Pulse 69 Temp 97.6 F (36.4 C) (Oral) Resp 18 Ht 5' 9 (1.753 m) Wt 74.8 kg (165 lb) SpO2 100% BMI 24.37 kg/m FHT: 140 bpm, moderate variability. Accelerations present 15x15. Decelerations absent [place]: contractions ctx every 3 min OB Examiner [...] with Dr. Marger - Breast-pump to bedside Subjective: Patient reports [...] 01/01/2020 Yellow Clarity, Urine 01/01/2020 Clear Specific Shepherd 01/01/2020 1.007 pH, Urine 01/01/2020 6.0 Protein, [...] FoundDocuments on File Type Date Recorded Patient Body Shop Supervisor Expl anation Advance Directives and Livin g Will 12/21/2019 10:48 AM Latest Code Status on File Code Status Date Activated Date Inactivated Comments Full Code 12/22/2019 3:27 PM Full Code 12/21/2019 1:04 PM 12/22/2019 3:27 PM Documents on File Type Date Recorded Patient Body Shop Supervisor Expl anation Advance Directives and Livin g Will 01/01/2020 5:05 PM Latest Code Status on File Code Status Date Activated Date Inactivated Comments Full Code 01/01/2020 7:43 PM Full Code 12/22/2019 3:27 PM 01/01/2020 4:34 PM Documents on File Type Date Recorded Patient Body Shop Supervisor Expl anation Advance Directives and Livin g Will 01/06/2020 5:05 PM Latest Code Status on File Code Status Date Activated Date Inactivated Comments Full Code 01/01/2020 7:43 PM 01/06/2020 3:03 PM Documents on File Type Date Recorded Patient Body Shop Supervisor Expl anation Advance Directives and Livin g [...] female genitalia without masses/lesions or tenderness Vagina: [place] mucosa with rugaeu, without abnormal discharge or [...] baseline, mod jerzy, +accels, several variable decels [place]: quiet Labs: Admission on 12/21/2019 Component Date [...] D/w Dr. Estes. Associated attestation - Maureen, Daksha El MD - 12/21/2019 3:02 PM EST [...] with Dr. Knott - Breast-pump to bedside Pre-eclampsia, delivered Assessment [...] 01/01/2020 Yellow Clarity, Urine 01/01/2020 Clear Specific Shepherd 01/01/2020 1.007 pH, Urine 01/01/2020 6.0 Protein, [...] 0.00 D/w Dr. Estes Associated attestation - Maueren, Daksha El MD - 01/02/2020 6:37 AM EST Late entry for 8pm 01/01 Patient seen and examined in ER w Dr. Cleary. See resident note. Agree with history, physical, exam, and diagnosis of: endometritis IV Zosyn secondary WBC 21k Not toxic Home in am documented in this encounter [facility] History and Physical Patient Name: Madelyn Mendez : 1990 MR #: [id number] Admit Date: Physicians: Mike Anderson DO (Family); Lisa Maldonado Ma* (Referring) Perpetual Assessment: 29 y.o. female patient of Mike Anderson DO recently and s/p recent hospitalization with endometritis. Presents post-operatively from D&C. Post-D&C bleeding Hgb 8.5 01/04 S/p 12/22 complicated by bleeding and treated with Cytotec 1000 mg AR Admitted at [facility] 01/01 - 01/02 for endometritis, initially treated [...] < 7, will need to transfer to [facility] for transfusion Chief Complaint: S/p D&C, bleeding History of Present Illness: 29 y.o. female s/p 12/22/2019 complicated by endometritis Reports uncomplicated . Delivery notable for ~1000cc bleeding treated with Cytotec. Re-admitted 01/01-01/02 with endometritis. Initially treated with antibiotics. However, at hospital follow up with stem cleaning machine feeder, was recommended to be treated with D&C. [...] Social Work will screen/assess all patients on Mother-Infant unit. Situation/Background: This is a 29 yr old mother, with private [facility] insurance. care through [facility] Dr. Lisa Maldonado. No indications for tox [...] observe and assist as needed. Mom has infant latched well and deeply in cross cradle [...] nipple pain. Observed x 5 min. 12/23/19 0903 Other OB Documentation Additional Problem Noted Pt [...] latch and . Mom attempting to latch infant when I enter. Mom states is not as interested in feeding this time. Assisted with techniques to awaken and latch infant. becomes more interested in feeding but continues [...] and rhythmic suckle pattern. Visible swallowing observed. latched and fed well at both breast. Upon detaching observe nipple pulled well into shield with a puddle of colostrum observed in shield. Infant dressed and wrapped and to FOB to hold for a bit before placing in crib at bedside. Mom and FOB very tired and hope to sleep now that infant has fed well. Called to assist with latch and . is eager to feed and roots for breast, extends tongue to reach for breast. latches shallow , however, and detaches after a few sucks, cheeks dimpling with suck. Mom has small , dense breasts with a short small nipple. Tried various positions in attempt to improve latch. Used sandwich hold as well to assist grasp of breast but still unable to latch well. With gloved digital exam observe infant tongue is up in back, she also tends thrust tongue in reverse motion pushing finger out. Laid back position works best to assist latch. Improved depth of latch obtained with infant sustaining a few more sucks before detaching. Infant is very eager to feed and works at for 30 minutes. Post feeding still showing cues. Mom hand expresses at this point and large syrupy drops of colostrum expressed and drawn up into 1 ml oral syringe. 0.5 ml colostrum obtained and syringe fed to . Provided [place] hand pump to this mom and instructed [...] Preeclampsia, third trimester Vanessa, Baby Girl Madelyn [[id number]] Delivery Anesthesia Method: Epidural Operative Delivery Forceps attempted?: No Vacuum extractor attempted?: No Shoulder Dystocia Shoulder dystocia present: No [place] Presentation Presentation: Vertex [place] Information date/time: 12/22/19 1144 Gender: Female Delivery type: Vaginal, Spontaneous Delivery location: OB Unit Initial disposition: Routine NB Care ?: No Details: Delivery Providers Delivering clinician: Daksha Estes MD Other personnel: Provider Role Covering Attending Lynn Vides DO Resident Residential Assistant Linda Reaves, top flavor attendant Nurse Registered Nurse Chaya De Jesus, top flavor attendant Assist Nurse Practitioner Cord Vessels: 3 vessels Complications: None Delayed cord clamping?: Yes Cord clamped date/time: 12/22/2019 1145 Cord blood obtained?: Lab Cord segment obtained?: Yes Gases sent?: Yes Stem cell collection (by Provider)?: No Placenta Date/time: 12/22/2019 1146 Removal: Spontaneous Appearance: Intact Disposition: Refrigerator [place] Apgars No data filed Measurements Weight: 7 lb 5.6 oz (3335 [...] FT/th/hi, cephalic by bedside ultrasound -ATSO Dr. Bokor -NPO/IVF -CEFM/toco -Admit labs pending -GBS pos; [...] double electric pump at home. Gave pt [place] manual pump along with collection containers and [...] ED Notes (unrecognized secti on and content) [facility] PCP - Mike Anderson DO [...] file Gets together: Not on file Attends jewish service: Not on file Active member of [...] Procedure Abnormality Status --------- ------ CBC Auto Differential[[id number]] Abnormal Final result Please view results for [...] been completed with a voice recognition software ([employer]).) Vernon Savage DO 01/01/201939 Patient 10 days post vaginal delivery, reports fever and vaginal discharge. documented in this encounter INFORMATION SOURCE (unrecogn ized section and content) DATE CREATED AUTHOR AUTHOR'S ORGANIZ ATION 04/24/2021 [facility] DATE CREATED AUTHOR AUTHOR'S ORGANIZ ATION 07/28/[address] [facility] DATE CREATED AUTHOR AUTHOR'S ORGANIZ ATION 07/31/2021 [facility] DATE CREATED AUTHOR AUTHOR'S ORGANIZ ATION 05/26/2022 [facility] DATE CREATED AUTHOR AUTHOR'S ORGANIZ ATION [facility]20[facility] DATE CREATED AUTHOR AUTHOR'S ORGANIZ ATION 09/03/2022 [facility] DATE CREATED AUTHOR AUTHOR'S ORGANIZ ATION 09/22/2022 [facility] DATE CREATED AUTHOR AUTHOR'S ORGANIZ ATION 10/27/2022 [facility] DATE CREATED AUTHOR AUTHOR'S ORGANIZ ATION 11/11/2023 [facility] Care Teams (unrecognized sec tion and [...] BE BASED ON THE PRIMARY CLINICAL RECORDS. [facility] [employer] provides no warranty or guarantee of the accuracy or completeness of information in this document.
[2024-01-11 10:03] LABS: Absolute Lymphocyte Count 1.18 X10^3/uL (0.83-4.51); Absolute Neutrophil Count 7.9 X10^3/uL (2.0-7.7); Basophil# 0.05 X10^3/uL; Basophil% 0.5 % (0-1); Eosinophil# 0.07 X10^3/uL; Eosinophils% 0.7 % (0-5); Hematocrit 35.4 % (37-47); Hemoglobin 11.4 g/dL (12.0-15.0); Lymphocyte # 1.18 X10^3/ul (0.83-4.51); Lymphocyte % 11.8 % (19-41); Mean Corp Hgb Conc 32.2 g/dL (32-36); Mean Corpuscular Hgb 30.2 pg (27.0-32.0); Mean Corpuscular Volume 93.7 fL (81-99); Mean Platelet Vol. 10.8 fl (6.2-12.0); NRBC Flagged by Analyzer 0 % (0-5); Neutrophil # 7.93 X10^3/uL (2.7-7.7); Neutrophil % 79.5 % (47-70); Platelet Count 202 K/mm3 (150-450); RBC Distribution Width CV 14.5 % (11.6-14.6); RBC Distribution Width SD 49.8 fl (35.1-43.9); Red Blood Count 3.78 M/mm3 (4.2-5.4)
[2024-01-11 10:53] LABS: Glucose Challenge Gest 1H 50g 106 mg/dL (70-140)
[2024-01-11 11:12] LABS: HIV - WCH Non-Reactive (Nonreactive); Syphilis Antibodies Non-reactive
== END | disposition home or self-care (01) ==
PROVIDERS: Advanced Practice Midwife; PCP Family Medicine; Referring Provider Obstetrics & Gynecology; Visit Provider Obstetrics & Gynecology
DX: O44.42 Low lying placenta NOS or without hemorrhage, second trimester (principal); Q51.3 Bicornate uterus; Z3A.26 26 weeks gestation of pregnancy; O34.02 Maternal care for unspecified congenital malformation of uterus, second trimester; O09.92 Supervision of high risk pregnancy, unspecified, second trimester; O99.891 Other specified diseases and conditions complicating pregnancy
CPT/HCPCS: 36415; 76816; 76817; 82950; 85025; 86703; 86780

== ENCOUNTER → 2024-02-09 | Outpatient (CLI) | payer BC, SELFPAY ==
--- NOTE | 2024-02-09 14:41 | US_ITS ---
STUDY: SECOND AND THIRD TRIMESTER OBSTETRICAL ULTRASOUND - LIMITED REASON FOR EXAM: Female, 33 years old placenta follow-up LMP: June 24, 2023. PRIOR ULTRASOUND: Comparison is made with prior study dated January 11, 2024. TECHNIQUE: Transabdominal and Transvaginal TECHNICAL QUALITY: Adequate. FINDINGS: There is a single intrauterine fetus. The fetus is in a breech /transverse left presentation. There is demonstrated cardiac activity with a heart rate of 136 bpm. There is a normal amniotic fluid volume. The largest amniotic fluid pocket measures 6.4 cm x 7.6 cm. The amniotic fluid index (JOSELYN) is 18.2 cm. The placenta is posterior in location and is not low lying. The placenta is at between 2.2 cm and 3 cm from the cervical os. There are Grade 1 placental changes. The cervix measures 5.2 cm in length. BIOMETRY: BPD: 7.91 cm: 31 weeks, 5 days HC: 29.3 cm: 32 weeks, 2 days AC: 28.4 cm: 32 weeks, 3 days FL: 6.08 cm: 31 weeks, 4 days Age by LMP: 32 weeks, 6 days. KAELA by LMP: March 30, 2024. age by prior US: 32 weeks, 1 days. KAELA by prior US: April 04, 2024. age by current US: 31 weeks, 6 days. KAELA by current US: April 06, 2024. Estimated weight: 1916 grams, +/- 287 grams, 22.3 percentile. US/OB Limited With Biometrics IMPRESSION: Single live intrauterine gestation with a mean gestational age of 32 weeks and 1 day. The measurements obtained today fall within the normal expected range. Electronically Signed: Edin De Leon MD at 12:31 EDT ,
== END | disposition home or self-care (01) ==
LOC: US 14:40
PROVIDERS: PCP Family Medicine; Referring Provider Obstetrics & Gynecology; Visit Provider Obstetrics & Gynecology
DX: O44.42 Low lying placenta NOS or without hemorrhage, second trimester (principal); Z3A.00 Weeks of gestation of pregnancy not specified
CPT/HCPCS: 76816

== ENCOUNTER → 2024-03-05 | Outpatient (CLI) | payer BC, SELFPAY | END | disposition home or self-care (01) | LOC: LABSPEC 10:56 | PROVIDERS: PCP Family Medicine; Referring Provider Obstetrics & Gynecology; Visit Provider Obstetrics & Gynecology | DX: O09.90 Supervision of high risk pregnancy, unspecified, unspecified trimester (principal); Z3A.00 Weeks of gestation of pregnancy not specified | CPT/HCPCS: 87081 ==

== ENCOUNTER → 2024-03-19 | Outpatient (CLI) | payer BC, SELFPAY ==
[2024-03-19 10:29] LABS: ROM Internal Control Test YES-OK TO RESULT pt. (Internal QC); ROM Patient Test Negative (Negative)
== END | disposition home or self-care (01) ==
LOC: LABSPEC 09:55
PROVIDERS: PCP Family Medicine; Referring Provider Obstetrics & Gynecology; Visit Provider Obstetrics & Gynecology
DX: O26.899 Other specified pregnancy related conditions, unspecified trimester (principal); N89.8 Other specified noninflammatory disorders of vagina; Z3A.00 Weeks of gestation of pregnancy not specified; O99.891 Other specified diseases and conditions complicating pregnancy
CPT/HCPCS: 84112

== ENCOUNTER 2024-03-26 12:10 | Inpatient (IN) | payer BC, SELFPAY ==
[2024-03-26 09:52] VITALS: BP 110/66; PULSE 71; PULSE 74; RESP 17; TEMP 36.6; O2SAT 100; O2SAT 99
--- NOTE | 2024-03-26 12:29 | HP.PCM.OB_ITS ---
HPI - General General Date of Admission: 03/26/24 Date of Service: 03/26/24 HPI Narrative HANANE COHEN, is a 33 F 39.3 weeks gestation who presents to unit after being seen in the office today for routine visit. Had concerns of decreased movement. Non reactive NST with Cat 2 tracing. Continued to have cat 2 tracing on unit and decision made for IOL Maternal Data Information KAELA Calculator Estimated Delivery Date Method Current WG Current Estimate 03/30/24 Ultrasound #1 39w 3d Other Estimates 03/23/24 LMP (Certain) 40w 3d PFSH PFSH Medical History Urinary incontinence Home Medications turmeric 100 mg-paresh 150 mg-olive 50 mg-oreg 150 mg-capryl capsule cap PO 02/22/23 [History Last Taken Unknown] progesterone micronized 200 mg capsule (Prometrium) 200 mg vaginal QHS #30 caps 06/13/23 [Rx Last Taken Unknown] multivitamin no.47-iron fum 27 mg-folate no.1 1 mg-dha 300 mg capsule (PNV-DHA) cap PO 08/23/23 [History Last Taken Unknown] magnesium citrate 100 mg tablet 250 mg PO DAILY 09/22/23 [History Last Taken Unknown] Allergy/AdvReac Type Severity Reaction Status Date / Time peanut Allergy Mild Upset Verified 03/26/24 09:02 Stomach Family History Grandmother Colon cancer Surgical History Hx of tonsillectomy S/P D&C (status post dilation and curettage) Social History adopted: No household members: spouse and children housing: house number of children: 1 current occupational status: employed current occupation: Physical therapist current occupational exposures/hazards: No pets and animals: No history of recent travel: No sexually active: Yes Smoking Status: Never smoker alcohol intake: never substance use type: does not use diet: gluten free and lactose free well-balanced diet: daily or most days caffeine: No eating out: 1-3 times/week during the past year weight has: remained stable what type of physical activity do you participate in: weight training frequency: 1-2 times per week duration: 15-30 minutes/day silvano/orthodox: Evangelical seatbelt use: always do you feel safe at home: Yes 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 Date Name GA/Weeks Outcome Route Bth Weight Infant Gen Labor Lgth Anesthesia Del Locatn Provider FOB 12/22/19 Harmony Cohen 39 live - full term Female [facility] Visit Details Expected Delivery Route/Plan Labor Preferences- labor support person: Fatuma labor intervention preferences: minimal intervention if possible. hydrotherapy. pain management options preferred: plan epidural to be placed and low dose amount given to still have a minimal intervention experience if able to, wants to try and avoid being put to sleep for retained products. had retained products last time. bedside ultrasound after delivery to confirm no retained products. cut cord/dad catch: fatuma cut cord only : yes PP control planned: [] discussed possible routes of delivery and associated risks: [] special requests: [] Plans Covid status: [] Flu vaccine: declined Tdap vaccine: declined Rhogam: na LARC form signed: movement and labor precautions reviewed. Problem list reviewed and updated with the most current plan of care details and appropriate orders placed. Relevant counseling for the gestational age provided. Continue routine care and follow up unless otherwise noted in visit notes/problem list details OB Flowsheet Initial Weight: Not Recorded Date -?-?-?-?-?-?-?-?-?-?-?-?- EGA Weight BP Urine Prot -?-?-?-?-?-?-?-?-?-?-?-?- Glucose FHR FuHt Pres Dilation -?-?-?-?-?-?-?-?-?-?-?-?- Effaced St Visit Note 08/24/23 -?-?-?-?-?-?-?-?-?-?-?-?- 8w 5d 134 lb 8 oz 106/68 -?-?-?-?-?-?-?-?-?-?-?-?- 160 -?-?-?-?-?-?-?-?-?-?-?-?- SM- CRL cons wit h LMP SM- CRL NOT cons with LMP ed d changed 09/07/23 -?-?-?-?-?-?-?-?-?-?-?-?- 10w 5d 137 lb 114/66 Negative -?-?-?-?-?-?-?-?-?-?-?-?- Negative 163 -?-?-?-?-?-?-?-?-?-?-?-?- -No VB. Nausea persists. Brief US confirms active IUP 09/22/23 -?-?-?-?-?-?-?-?-?-?-?-?- 12w 6d 137 lb 114/67 Negative -?-?-?-?-?-?-?-?-?-?-?-?- Negative 157 -?-?-?-?-?-?-?-?-?-?-?-?- JV- no cramping or spotting, declines nipt 10/03/23 -?-?-?-?-?-?-?-?-?-?-?-?- 14w 3d 138 lb 105/67 Negative -?-?-?-?-?-?-?-?-?-?-?-?- Negative 147 -?-?-?-?-?-?-?-?-?-?-?-?- JV- no lof, vagi nal bleeding or cramping. has anatomy scan scheduled 11/09/23 10/31/23 -?-?-?-?-?-?-?-?-?-?-?-?- 18w 3d 142 lb 118/72 Negative -?-?-?-?-?-?-?-?-?-?-?-?- Negative 145 -?-?-?-?-?-?-?-?-?-?-?-?- JV- pt c/o maryana ry incontinence. wants a referral to pelvic floor PT. She found a place in [place] ([facility] that will see her in . 11/28/23 -?-?-?-?-?-?-?-?-?-?-?-?- 22w 3d 147 lb 4 oz Negative -?-?-?-?-?-?-?-?-?-?-?-?- Negative 145 22 -?-?-?-?-?-?-?-?-?-?-?-?- KW- no vb/lof/ct x. good fm. many questions today 12/26/23 -?-?-?-?-?-?-?-?-?-?-?-?- 26w 3d 146 lb 8 oz 110/74 Nega tive -?-?-?-?-?-?-?-?-?-?-?-?- Negative 160 25 -?-?-?-?-?-?-?-?-?-?-?-?- KW-no vb/lof/ctx . good fm. had flu 2 weeks ago feeling better now. KW-no vb/lof/ctx. good fm. h ad flu 2 weeks ago feeling better now. Discussed in length Hx of PPH. would like bedside US after delivery to ensure all products are delivered. 01/23/24 -?-?-?-?-?-?-?-?-?-?-?-?- 30w 3d 151 lb 128/75 Negative -?-?-?-?-?-?-?-?-?-?-?-?- Negative 135 30 -?-?-?-?-?-?-?-?-?-?-?-?- SM- no vb lof go od fm no regular ctx having pubic symphysis pain- 02/06/24 -?-?-?-?-?-?-?-?-?-?-?-?- 32w 3d 155 lb 8 oz 107/67 Nega tive -?-?-?-?-?-?-?-?-?-?-?-?- Negative 150 32 -?-?-?-?-?-?-?-?-?-?-?-?- SM- no vb lof go od fm no regualr ctx larc signed 02/21/24 -?-?-?-?-?-?-?-?-?-?-?-?- 34w 4d 155 lb 8 oz 103/68 -?-?-?-?-?-?-?-?-?-?-?-?- 130 33 -?-?-?-?-?-?-?-?-?-?-?-?- KW- no vb/lof/ct x. good fm. discussed updated plan. Placenta no longer low lying. 03/05/24 -?-?-?-?-?-?-?-?-?-?-?-?- 36w 3d 162 lb 124/74 Negative -?-?-?-?-?-?-?-?-?-?--?-?- Negative 130 36 Cephalic -?-?-?-?-?-?-?-?-?-?-?-?- SM- no vb lof go od fm no reuglar ctx gbs collected 03/12/24 -?-?-?-?-?-?-?-?-?-?-?-?- 37w 3d 162 lb 115/68 Negative -?-?-?-?-?-?-?-?-?-?-?-?- Negative 135 37 Cephalic -?-?-?-?-?-?-?-?-?-?-?-?- kw- no vb/lof/ct x. had some decreased fm. NST reactive today with noted movement. 03/19/24 -?-?-?-?-?-?-?-?-?-?-?-?- 38w 3d 162 lb 112/71 Negative -?-?-?-?-?-?-?-?-?-?-?-?- Negative 140 37 Cephalic -?-?-?-?-?-?-?-?-?-?-?-?- SM- no vb questi onable LOF. no regular ctx Rom plus 03/26/24 -?-?-?-?-?-?-?-?-?-?-?-?- 39w 3d 164 lb 126/75 Negative -?-?-?-?-?-?-?-?-?-?-?-?- Negative 120 -?-?-?-?-?-?-?-?-?-?-?-?- JV- minimal vari ability and a broken up variable on NST. sending to L&D for monitoring and possible IOL. NST FHR Rate Baby A Baseline: 140 Variability:: Minimal (upon arrival) and Moderate Accelerations:: 15 x 15 Decelerations:: Variable (upon arrival ) FHR Category:: Category I and Category II Uterine Activity:: none ROS Constitutional Constitutional: Denies change in weight, fatigue, fever(s), headache(s), poor appetite or weakness Eyes Eyes: Denies blurry vision, change in vision, floaters, seeing flashes or spots in vision ENT HEENT: Denies dizziness, headache(s), loss taste/smell or sore throat Cardiovascular Cardiovascular: Denies chest pain, dizziness, dyspnea, irregular heart rhythm, lightheadedness, palpitations or rapid heart rate Respiratory/Chest Respiratory/Chest: Denies change in mental status, chest tightness, cough, dyspnea or breast pain Gastrointestinal Gastrointestinal: Denies anorexia, chewing difficulty, constipation, diarrhea or weight changes Genitourinary Genitourinary: Denies difficulty urinating, dysuria, flank pain, genital pain, urinary frequency or urinary urgency Musculoskeletal Musculoskeletal: Denies back pain, difficulty walking, extremity pain, joint pain, muscle cramps or muscle weakness Integumentary Integumentary: Denies lesions or unusual bruising Neurologic Neurologic: Denies abnormal movements, abnormal speech, dizziness, numbness, seizure-like activity, syncope or weakness Psychiatric Psychiatric: Denies behavioral changes, change in appetite, confusion, depression, homicidal ideation, suicidal ideation or suicidal thoughts Endocrine Endocrinology: Denies excessive sweating, polydipsia or polyuria Hematologic/Lymphatic Hematologic/Lymphatic: Denies anemia Allergic/Immunologic Allergic/Immunologic: Denies itchy eyes, lip swelling, throat swelling, tongue swelling or wheezing Vital Signs Vital Signs Vital Signs: 03/26/24 09:52 03/26/24 09:52 03/26/24 09:52 Temperature Temperature Source Pulse Rate 71 74 Respiratory Rate Blood Pressure 110/66 BP Systolic 110 BP Diastolic 66 Pulse Ox 03/26/24 09:52 03/26/24 09:52 03/26/24 09:52 Temperature Temperature Source Tympanic Pulse Rate Respiratory Rate 17 Blood Pressure BP Systolic BP Diastolic Pulse Ox 99 03/26/24 09:52 03/26/24 09:52 Temperature 97.9 F Temperature Source Pulse Rate Respiratory Rate Blood Pressure BP Systolic BP Diastolic Pulse Ox 100 Physical Exam Const alert, oriented x3 and no apparent distress General Appearance: cooperative Orientation / Consciousness: awake HEENT normocephalic Neck full ROM Lymph Lymphatic: no lymphadenopathy noted Chest inspection of chest normal Resp normal respiratory effort and normal air movement Effort and Inspection: able to speak in complete sentences and symmetric chest movement GI soft to palpation and non-tender Inspection: gravid Palpation: soft; Negative for tender external exam normal Back/Spine normal to inspection Extremity normal to inspection and full ROM Skin no rashes or lesions noted Psych mental status grossly normal Appearance: grossly normal Speech: normal speech Labs Labs Labs: Blood Type Pending Antibody Screen NEGATIVE Hct 35.4 % (37-47) L Hgb 11.4 g/dL (12.0-15.0) L Obstetrics Ultrasound Syphilis Total Ab Non-reactive Rubella IgG Antibody Reactive (Nonreactive) Hep Bs Antigen Non-Reactive (Nonreactive) Hepatitis C Antibody Non-Reactive (Nonreactive) Chlamydia DNA (TALA) Negative (Negative) N.gonorrhoeae DNA (TALA) Negative (Negative) HIV 1&2 Antibody Non-Reactive (Nonreactive) Glucose 1 Hr 50 gm 106 mg/dL (70-140) Miscellaneous Test Assessment & Plan (1) History of hemorrhage: COMMENT: had endometritis and 2 d&c's because placental tissue tucked up by the septum would like bedside US after delivery . discussed having epidural placed but not dosed in case manual removal or d and c needed . (2) Bicornuate uterus: (3) Supervision of high-risk : QUALIFIERS: Trimester: first trimester Qualified Code(s): O09.91 - Supervision of high risk , unspecified, first trimester COMMENT: [id number], KAELA 03/30/24 surprise TERRANCE Antunez, Fatuma (4) : QUALIFIERS: Weeks of gestation: 39 weeks Qualified Code(s): Z3A.39 - 39 weeks gestation of COMMENT: GBS neg., declines genetic & carrier testing. anatomy reveiwed (5) Encounter for induction of labor: COMMENT: cytotec/fam/pitocin PLAN: Patient presents IOL, plan management for with cytotec/ pitocin/AROM. Pain management: plans epidural. GBS negative. Management of any complications: none I have reviewed the [facility] and made any clinically relevant updates. Discussed assessment and plan with dr chacon and she agrees with above plan of care Charges/Coding Multi Select Codes Urinary/Genital Urinary/Genital CPT Codes: No Charge
[2024-03-26 12:54] VITALS: BMI 24.0
[2024-03-26 14:27] LABS: Absolute Lymphocyte Count 1.21 X10^3/uL (0.83-4.51); Absolute Neutrophil Count 6.8 X10^3/uL (2.0-7.7); Basophil# 0.03 X10^3/uL; Basophil% 0.3 % (0-1); Eosinophil# 0.04 X10^3/uL; Eosinophils% 0.5 % (0-5); Hemoglobin 12.2 g/dL (12.0-15.0); Lymphocyte # 1.21 X10^3/ul (0.83-4.51); Mean Corpuscular Hgb 30.6 pg (27.0-32.0); Mean Corpuscular Volume 92.7 fL (81-99); Mean Platelet Vol. 11.9 fl (6.2-12.0); Monocyte# 0.48 X10^3/uL; Monocyte% 5.5 % (0-10); NRBC Flagged by Analyzer 0 % (0-5); Neutrophil % 78.4 % (47-70); Platelet Count 155 K/mm3 (150-450); RBC Distribution Width SD 47.8 fl (35.1-43.9); Red Blood Count 3.99 M/mm3 (4.2-5.4); White Blood Count 8.7 K/mm3 (4.4-11.0)
[2024-03-26 15:09] LABS: Syphilis Antibodies Non-reactive
[2024-03-26 16:13] VITALS: BP 120/73; PULSE 68
[2024-03-26] MEDS: miSOPROStol 25 MCG TABLET VAGINAL ×2 (16:50→21:21)
[2024-03-26 19:19] VITALS: BP 120/77; PULSE 61; RESP 16; TEMP 36.3
[2024-03-26 23:29] VITALS: BP 115/56; PULSE 63
[2024-03-26 23:36] VITALS: RESP 16; TEMP 36.3
[2024-03-27] VITALS (32 sets, daily range): BP systolic 95–129; BP diastolic 49–75; PULSE 56–73; RESP 16–18; TEMP 36.1–37; O2SAT 80–100
[2024-03-27] MEDS: Lactated Ringers 1,000 ML 50 ML IV (01:43)
[2024-03-27] MEDS: miSOPROStol 25 MCG TABLET VAGINAL (02:26)
[2024-03-27] MEDS: LACTATED RINGERS 500 ML 999 ML IV ×2 (05:24→11:07)
--- NOTE | 2024-03-27 08:02 | PCM.PN.BLA ---
Progress Note pt is comfortable with contractions, sitting up in bed. current tracing: FHT:140's Moderate variability reactive no decelerations category I tracing [place]: not picking up regular Contractions cx: 3/-2 patient consents to AROM- membranes ruptured with minimal clear/blood tinged fluid return. A/P: IOL for non-reassuring tracing and decreased movement. plan to start pitocin now. epidural prn.
[2024-03-27] MEDS: Oxytocin 15 Units/NS 250ml 15 UNITS/250 ML IV.SOLN 2 UNITS IV (08:48)
[2024-03-27] MEDS: 0.9% Saline Lock 10 ML Syringe IV (08:48)
[2024-03-27] MEDS: Methylergonovine 0.2 MG/ML Ampul IM (12:25)
[2024-03-27] MEDS: Oxytocin 15 Units/NS 250ml 15 UNITS/250 ML IV.SOLN 83 UNITS IV (12:50)
--- NOTE | 2024-03-27 12:59 | OP.PCM_ITS ---
Assessment & Plan (1) Encounter for induction of labor: COMMENT: cytotec/fam/pitocin (2) History of hemorrhage: COMMENT: had endometritis and 2 d&c's because placental tissue tucked up by the septum would like bedside US after delivery . discussed having epidural placed but not dosed in case manual removal or d and c needed . (3) Bicornuate uterus: (4) Supervision of high-risk : QUALIFIERS: Trimester: first trimester Qualified Code(s): O09.91 - Supervision of high risk , unspecified, first trimester COMMENT: [id number], KAELA 03/30/24 surprise PC Harmony, Maykel (5) : QUALIFIERS: Weeks of gestation: 39 weeks Qualified Code(s): Z3A.39 - 39 weeks gestation of COMMENT: GBS neg., declines genetic & carrier testing. anatomy reveiwed Maternal Data Information KAELA Calculator Estimated Delivery Date Method Current WG Current Estimate 03/30/24 Ultrasound #1 39w 4d Other Estimates 03/23/24 LMP (Certain) 40w 4d Final KAELA Source: US <20 weeks Gestational age: 39 weeks 4 days Vaginal Delivery Maternal Presentation Maternal Presentation: Medically Indicated Induction Type of Induction: Pitocin, Amniotomy and Cytotec Operative Information Date of Procedure: 03/27/24 Pre-Operative Diagnosis: @ 39 weeks 4 days, non-reactive nst and decelerations Post-Operative Diagnosis: @ 39 weeks 4 days, non-reactive nst and decelerations, umbilical cord aneurysm Surgery / Procedure Performed: Spontaneous Vaginal Delivery Type of Anesthesia: Epidural Anesthesiologist: Tye Haney Estimated Blood Loss: 300cc Findings Description of Procedure: Patient began pushing and delivered the head in the SEBASTIAN presentation. The head was delivered atraumatically and a loose nuchal cord ?1 was identified and easily reduced over the 's head. The anterior and posterior shoulders delivered without complication followed by the rest of the and the infant was placed on the maternal abdomen. Delayed cord clamping was employed for approximately 40 seconds until it was noted that the poximal cord site was bleeding rapidly. Noted at this site, about 2 cm from the umbilical insertion was a ruptured artery not associated with manual trauma. The Cord was clamped and cut and gentle traction was applied to the cord and the placenta delivered spontaneously immediately following it was noted to be intact with three-vessel cord. The perineum and vagina were inspected and noted to have no laceration. A manual uterine exploration was performed to ensure both horns of the uterus were free of pieces of placenta, and they were. Bedside ultrasound was performed per patient request due to her past experience of retained placenta and a thin endometrial stripe was noted. Methergine and pitocin were used prophylactically to prevent bleeding due to her history. EBL was 300. Patient and tolerated delivery well. Presentation: Vertex Amniotic Membrane Rupture Type: Artificial Time of Membrane Rupture: 0800 Amniotic Fluid Description: Clear Placental Delivery Description: Spontaneous Placenta Disposition: [facility] Cord Vessel Description: 3 Vessels Cord Entanglement: Around neck x 1, loose Nuchal Cord Compression: Without compression A Gender: Female (1 minute): 9 (5 minute): 9 Delayed Cord Clamping: Yes Post Vaginal Delivery Medications Given After Delivery: IV Pitocin and IM Methergin Episiotomy Description: None Laceration: None Complication Complications: None Multi Select Codes Urinary/Genital Urinary/Genital CPT Codes: 87788 Vaginal Delivery [facility]
--- NOTE | 2024-03-27 13:07 | DCINST_ITS ---
Discharge Instructions Diet Discharge Diet: No restrictions Activity Discharge Activity: Return to Normal Activity, May Not Drive (while taking narcotic pain medications.) and May Shower May resume sexual activity in: 4-6 weeks Dressing / Incision Call your doctor if your incision/area has: Continuous Slow Oozing, Sudden Increased Bleeding, Increased Pain/ Swelling, Increased Redness and Foul Smelling Discharge Follow Up Care Please Follow Up With: Zoila Torres, When: Call [phone] to make an appointment with your doctor in 6 weeks. If you had elevated blood pressure or 4th degree laceration, you will need to be seen in 2 weeks. Test Results: Test results from this visit will be discussed in further detail at your follow- up appointment, if applicable. Discharge Plan Admission Admit Date/Time: 03/26/24 12:10 Primary Reason for Your Visit: vaginal delivery Attending Provider: Zoila Torres Primary Care Provider: Xochitl Ferro Discharge Orders/Prescriptions Prescriptions: No Action epvbdexb-oicw-jgkil-oreg-capry 100 mg-150 mg- 50 mg-150 mg capsule PO PNV-DHA 27 mg iron-1 mg -300 mg capsule PO magnesium citrate 100 mg tablet 250 mg PO DAILY progesterone micronized [Prometrium] 200 mg capsule 200 mg vaginal QHS Qty: 30 6RF Referrals / Follow Up: Xochitl Ferro [Primary Care Provider] - Disposition Disposition (needs filled in before D/C Order can be placed): Home, Self Care
[2024-03-27] MEDS: Acetaminophen 500 MG Tablet 1000 MG PO ×2 (13:58→20:13)
[2024-03-27] MEDS: Ibuprofen 600 MG Tablet PO (17:31)
[2024-03-28 00:15] VITALS: BP 109/65; PULSE 65; RESP 16
[2024-03-28] MEDS: Ibuprofen 600 MG Tablet PO ×3 (00:16→15:29)
[2024-03-28 02:28] VITALS: BP 104/70; PULSE 56; RESP 16
[2024-03-28] MEDS: Acetaminophen 500 MG Tablet 1000 MG PO ×2 (02:38→08:29)
--- NOTE | 2024-03-28 07:53 | PCM.PN.OB ---
Subjective Subjective Patient doing well without complaints. Tolerating PO. Ambulating and voiding without difficulty. feeding well. Denies chest pain, shortness of breath, calf pain/swelling, fevers, chills, lightheadedness. Objective Data Objective Data Vital Signs: Vital Signs Temp Pulse Resp BP Pulse Ox O2 Del Method 97.5 F L 56 L 16 104/70 100 Room Air 03/27/24 20:11 03/28/24 02:28 03/28/24 02:28 03/28/24 02:28 03/27/24 11:29 03/28/24 02:28 Oxygen Delivery Method Room Air Weight: 163 lb Body Mass Index (BMI) 24.0 Intake & Output: Intake and Output for Last 24 Hours 03/26/24 03/27/24 03/28/24 23:59 23:59 23:59 Intake Total 2077.00 / 2077.00 Output Total 1200 / 1200 Balance 877.00 / 877.00 Lab / Micro Data 03/26/24 14:10 ROS Constitutional Constitutional: Reports systems reviewed and no addt'l complaints, except as documented Cardiovascular Cardiovascular: Reports systems reviewed and no addt'l complaints, except as documented Respiratory/Chest Respiratory/Chest: Reports systems reviewed and no addt'l complaints, except as documented Gastrointestinal Gastrointestinal: Reports systems reviewed and no addt'l complaints, except as documented Physical Exam Const alert, oriented x3 and no apparent distress HEENT Head and Scalp: atraumatic Resp normal respiratory effort GI soft to palpation and non-tender Bimanual Exam - Vag & Uterus: uterus non-tender Uterus Palpation: uterus fundus firm (below Umbilicus) Assessment & Plan (1) Vaginal delivery: PLAN: Plan s/p PPD # 1 1. routine post delivery care 2. breast feeding- support given 3. rh positive 4. rubella immune
[2024-03-28 08:33] VITALS: BP 105/69; PULSE 62; RESP 16; TEMP 36.2
[2024-03-28] MEDS: Dibucaine 30 GM Tube 1 APPLIC TOPICAL (09:55)
[2024-03-28] MEDS: Benzocaine/Lanolin/Aloe Vera 1 SPRAY EACH TOPICAL (09:56)
[2024-03-28 13:57] VITALS: BP 108/64; PULSE 64; RESP 16; TEMP 36.2
== END 2024-03-28 19:05 | disposition home or self-care (01) | DRG 807 ==
LOC: WPOUT 12:29 → WP 12:29
PROVIDERS: Advanced Practice Midwife; Admitting Provider Obstetrics & Gynecology; PCP Family Medicine; Referring Provider Obstetrics & Gynecology; Visit Provider Obstetrics & Gynecology
DX: O76 Abnormality in fetal heart rate and rhythm complicating labor and delivery (principal); Z37.0 Single live birth; O26.23 Pregnancy care for patient with recurrent pregnancy loss, third trimester; O36.8130 Decreased fetal movements, third trimester, not applicable or unspecified; O69.81X0 Labor and delivery complicated by cord around neck, without compression, not applicable or unspecified; Z3A.39 39 weeks gestation of pregnancy; Q51.3 Bicornate uterus; O99.893 Other specified diseases and conditions complicating puerperium
CPT/HCPCS: 59050; 85025; 86780; 86850; 86900; 86901; 99221; J7120; A4216; G0378

== ENCOUNTER 2024-04-02 17:10 | Outpatient (CLI) | payer BC, SELFPAY ==
[2024-04-02] VITALS (7 sets, daily range): BP systolic 114–131; BP diastolic 74–77; PULSE 61–68; RESP 15; TEMP 36.5; O2SAT 97–98; BMI 20.9
[2024-04-02 17:56] LABS: Absolute Lymphocyte Count 1.23 X10^3/uL (0.83-4.51); Absolute Neutrophil Count 8.4 X10^3/uL (2.0-7.7); Basophil# 0.09 X10^3/uL; Basophil% 0.8 % (0-1); Eosinophils% 1.8 % (0-5); Hematocrit 39.8 % (37-47); Hemoglobin 12.8 g/dL (12.0-15.0); Lymphocyte # 1.23 X10^3/ul (0.83-4.51); Lymphocyte % 11.3 % (19-41); Mean Corp Hgb Conc 32.2 g/dL (32-36); Mean Corpuscular Hgb 29.7 pg (27.0-32.0); Mean Corpuscular Volume 92.3 fL (81-99); Monocyte# 0.71 X10^3/uL; Monocyte% 6.5 % (0-10); NRBC Flagged by Analyzer 0 % (0-5); Neutrophil # 8.41 X10^3/uL (2.7-7.7); Neutrophil % 77.5 % (47-70); Platelet Count 237 K/mm3 (150-450); RBC Distribution Width CV 13.6 % (11.6-14.6); RBC Distribution Width SD 46.3 fl (35.1-43.9); Red Blood Count 4.31 M/mm3 (4.2-5.4); White Blood Count 10.9 K/mm3 (4.4-11.0)
[2024-04-02 18:19] LABS: ALB/GLOB Ratio 0.6 RATIO (0.9-2.4); AST(SGOT) 16 U/L (15-37); Alanine Aminotransfer ALT/SGPT 26 U/L (13-56); Albumin, Serum 2.6 g/dL (3.2-5.0); Alkaline Phosphatase 138 U/L (45-117); Anion Gap 6 (5-15); BUN 13 mg/dL (7-18); BUN/Creat Ratio 16.8 RATIO (10-20); Chloride 111 mmol/L (98-107); Creatinine, Serum 0.77 mg/dL (0.55-1.02); EST Glomerular Filtration Rate 91 mL/min (>60); Est Glom Filt Rate - Afr Amer 110 mL/min (>60); Estimated Creatinine Clearance 104.68 ml/min; Globulin 4.1 g/dL (2.2-4.2); Glucose 104 mg/dL (74-106); Potassium 3.8 mmol/L (3.5-5.1); Protein, Total 6.7 g/dL (6.4-8.2); Sodium Level 141 mmol/L (136-145)
--- NOTE | 2024-04-12 02:57 | OB.TRI.PN_ITS ---
Progress Notes Date of Service: 04/02/24 Progress Note: Patient presents for triage evaluation secondary to possible preeclampsia FHT: 140 Moderate variability reactive no decelerations category I tracing [place]: no regular Contractions Assessment and plan: normal blood pressures ruled out preeclampsia labs WNL Reactive NST, reassuring maternal and status patient discharged to home to follow-up as scheduled. See problem list details for additional plan information. Laboratory Studies: Laboratory Tests 04/02/24 Range/Units 17:45 WBC 10.9 (4.4-11.0) K/mm3 RBC 4.31 (4.2-5.4) M/mm3 Hgb 12.8 (12.0-15.0) g/dL Hct 39.8 (37-47) % MCV 92.3 (81-99) fL MCH 29.7 (27.0-32.0) pg MCHC 32.2 (32-36) g/dL RDW Std Deviation 46.3 H (35.1-43.9) fl RDW Coeff of Franck 13.6 (11.6-14.6) % Plt Count 237 (150-450) K/mm3 MPV 10.0 (6.2-12.0) fl Immature Gran % (Auto) 2.100 H (0.0-0.9) % Neut % (Auto) 77.5 H (47-70) % Lymph % (Auto) 11.3 L (19-41) % [place] % (Auto) 6.5 (0-10) % Eos % (Auto) 1.8 (0-5) % Baso % (Auto) 0.8 (0-1) % Absolute Neuts (auto) 8.4 H (2.0-7.7) X10^3/uL Absolute Lymphs (auto) 1.23 (0.83-4.51) X10^3/uL Nucleated RBC % 0 (0-5) % Sodium 141 (136-145) mmol/L Potassium 3.8 (3.5-5.1) mmol/L Chloride 111 H (98-107) mmol/L Carbon Dioxide 24.0 (21.0-32.0) mmol/L Anion Gap 6 (5-15) BUN 13 (7-18) mg/dL Creatinine 0.77 (0.55-1.02) mg/dL Estim Creat Clear Calc 104.68 ml/min Est GFR (MDRD) Af Amer 110 (>60) mL/min Est GFR (MDRD) Non-Af 91 (>60) mL/min BUN/Creatinine Ratio 16.8 (10-20) RATIO Glucose 104 (74-106) mg/dL Calcium 9.0 (8.5-10.1) mg/dL Total Bilirubin 0.40 (0.20-1.00) mg/dL AST 16 (15-37) U/L ALT 26 (13-56) U/L Alkaline Phosphatase 138 H (45-117) U/L Total Protein 6.7 (6.4-8.2) g/dL Albumin 2.6 L (3.2-5.0) g/dL Globulin 4.1 (2.2-4.2) g/dL Albumin/Globulin Ratio 0.6 L (0.9-2.4) RATIO Charges/Coding Procedures Urinary/Genital [id number]: [id number] non-stress test Interp
== END 2024-04-02 18:26 | disposition home or self-care (01) ==
LOC: WPOUT 17:19 → WP 17:20
PROVIDERS: PCP Family Medicine; Referring Provider Obstetrics & Gynecology; Visit Provider Obstetrics & Gynecology
DX: Z03.79 Encounter for other suspected maternal and fetal conditions ruled out (principal)
CPT/HCPCS: 80053; 85025; 99221; G0378

== ENCOUNTER → 2024-08-12 | Outpatient (CLI) | payer BC, SELFPAY | END | disposition home or self-care (01) | LOC: LABSPEC 14:33 | PROVIDERS: PCP Family Medicine; Referring Provider Nurse Practitioner Women's Health; Visit Provider Nurse Practitioner Women's Health | DX: N89.8 Other specified noninflammatory disorders of vagina (principal) | CPT/HCPCS: 87070; 87077; 87205 ==

== ENCOUNTER → 2024-10-30 | Outpatient (CLI) | payer BC, SELFPAY | END | disposition home or self-care (01) | LOC: LABSPEC 10:53 | PROVIDERS: Referring Provider Nurse Practitioner Family; Visit Provider Nurse Practitioner Family | DX: N89.8 Other specified noninflammatory disorders of vagina (principal) | CPT/HCPCS: 87070; 87205 ==

== ENCOUNTER → 2024-11-06 | Outpatient (CLI) | payer BC, SELFPAY ==
--- NOTE | 2024-11-06 18:09 | US_ITS ---
STUDY: ULTRASOUND OF THE FEMALE PELVIS - COMPLETE REASON FOR EXAM: Female, 33 years old. PAIN LMP: Patient is . TECHNIQUE: Transabdominal and Transvaginal TECHNICAL QUALITY: Adequate. COMPARISON: Comparison is made with prior study April 05, 2023. FINDINGS: The uterus is anteverted and is in a midline position. The uterus measures 6.9 cm x 5.8 cm x 3.1 cm. The uterine is septated. Normal uterine cervix. The endometrium measures 6 mm in thickness, and is hyperechoic. There is no demonstrated endometrial mass. There is no demonstrated myometrial mass. I.U.D. - The patient does not have an I.U.D. The right ovary is visualized. The right ovary measures 4.7 cm x 2 cm x 1.8 cm. There is no right ovarian cyst or ovarian mass. There is no visualized right adnexal mass or complex lesion. There is normal arterial and normal venous vascularity. The left ovary is visualized. The left ovary measures 3.3 cm x 1.7 cm x 1.4 cm. There is no left ovarian cyst or ovarian mass. There is no visualized left adnexal mass or complex lesion. There is normal arterial and normal venous vascularity. There is no fluid in the cul-de-sac. The pre void volume of the bladder was 590 ml. US/Pelvic w/ Transvaginal IMPRESSION: Septated uterus. No acute abnormality is seen. Electronically Signed: Edin De Leon MD at 9:09 EST ,
== END | disposition home or self-care (01) ==
PROVIDERS: PCP Family Medicine; Visit Provider Nurse Practitioner Family
DX: R10.2 Pelvic and perineal pain (principal)
CPT/HCPCS: 76830; 76856